=== PATIENT | female | born 1955 | race Caucasian/White ===

== ENCOUNTER 2016-09-18 15:40 | Inpatient (IN) | payer BC ==
[~2016-09-18] VITALS: Ht 157.5 cm; Wt 121.1 kg
[2016-09-18] MEDS ORDERED: MORPHINE SULFATE 4 MG/ML DISP.SYRIN. IV/SQ PRN (16:00)
--- NOTE | 2016-09-18 16:24 | PHYS DOC ---
Adult General Chief Complaint Chief Complaint: MECHANICAL FALL HPI HPI Patient is a 61 year old female who presents with pain after a fall. The patient states she tripped over her carpet just prior to arrival. States she fell to the ground, directly onto her right knee. States her leg was caught underneath her. She also hit her right shoulder against the wall. She denies head trauma or loss of consciousness. States she was unable to bear weight after the injury. Denies any previous shoulder or knee injuries or surgeries. Denies syncope or lightheadedness is contributing factors in her fall. Review of Systems Review of Systems Constitutional: Denies fever or chills Eyes: Denies change in visual acuity HENT: Denies nasal congestion or sore throat Respiratory: Denies cough or shortness of breath Cardiovascular: Denies chest pain or edema GI: Denies abdominal pain, nausea, vomiting, or diarrhea Musculoskeletal: Reports shoulder and knee pain Integument: Denies rash or skin lesions Neurologic: Denies headache, focal weakness or sensory changes Current Medications Current Medications Current Medications Medications (Trade) Dose Ordered Sig/Bisi Start Time Stop Time Status Last Admin Dose Admin Morphine Sulfate 4 mg PRN Q15MIN PRN 09/18/16 16:00 09/19/16 15:59 09/18/16 16:26 4 MG Ondansetron HCl (Zofran) 4 mg 1X ONCE 09/18/16 16:30 09/18/16 16:31 DC 09/18/16 16:26 4 MG Allergies Allergies Allergies Coded Allergies Type Severity Reaction Last Updated Verified Penicillins Allergy Unknown Rash 09/18/16 Yes cefazolin Allergy Unknown Anaphylaxis 09/18/16 Yes Physical Exam Physical Exam Constitutional: Obese, no acute distress, non-toxic appearance. HENT: Normocephalic, atraumatic, bilateral external ears normal, oropharynx moist, nose normal. Eyes: PERRLA, EOMI, conjunctiva normal, no discharge. Neck: supple, no stridor. no c-spine tenderness Cardiovascular: RRR, no murmurs, no edema. Lungs & Thorax: LCTAB, no wheezing, no respiratory distress. Abdomen: soft, nontender, nondistended. Skin: Warm, dry, no erythema, no rash. Back: No spinal tenderness or step offs. Extremities: right shoulder no swelling or deformity, generalized tenderness over joint, unable to demonstrate active ROM in any direction, no elbow or wrist tenderness, radial pulse 2+, axillary nerve sensation intact, radial/ median/ulnar nerve sensory & motor function intact. right knee swelling without obvious deformity, severe diffuse tenderness, unable to demonstrate any active ROM, does not tolerate anterior/posterior drawer or valgus/varus stress but no definite instability identified, no hip or ankle tenderness, dp/pt 2+, sensation intact to foot, able to move ankle & toes. Neurologic: Alert and oriented X 3, normal motor & sensory function, no focal deficits noted. Psychologic: Affect normal, judgement normal, mood normal. Current Patient Data Vital Signs Vital Signs Date Time Temp Pulse Resp B/P (MAP) Pulse Ox O2 Delivery O2 Flow Rate FiO2 09/18/16 16:23 84 20 171/83 (112) 93 Nasal Cannula 2.0 09/18/16 15:40 98.2 98.2 Lab Values Laboratory Tests Test 09/18/16 16:10 White Blood Count 16.2 x10^3/uL (4.0-11.0) H Red Blood Count 5.77 x10^6/uL (3.50-5.40) H Hemoglobin 15.7 g/dL (12.0-15.5) H Hematocrit 48.7 % (36.0-47.0) H Mean Corpuscular Volume 84 fL (79-100) Mean Corpuscular Hemoglobin 27 pg (25-35) Mean Corpuscular Hemoglobin Concent 32 g/dL (31-37) Red Cell Distribution Width 18.5 % (11.5-14.5) H Platelet Count 275 x10^3/uL (140-400) Neutrophils (%) (Auto) 82 % (31-73) H Lymphocytes (%) (Auto) 12 % (24-48) L Monocytes (%) (Auto) 4 % (0-9) Eosinophils (%) (Auto) 2 % (0-3) Basophils (%) (Auto) 0 % (0-3) Neutrophils # (Auto) 13.3 x10^3uL (1.8-7.7) H Lymphocytes # (Auto) 1.9 x10^3/uL (1.0-4.8) Monocytes # (Auto) 0.7 x10^3/uL (0.0-1.1) Eosinophils # (Auto) 0.3 x10^3/uL (0.0-0.7) Basophils # (Auto) 0.1 x10^3/uL (0.0-0.2) Segmented Neutrophils % 71 % (35-66) H Band Neutrophils % 12 % (0-9) H Lymphocytes % 11 % (24-48) L Monocytes % 3 % (0-10) Eosinophils % 3 % (0-5) Toxic Granulation Slight Platelet Estimate Adequate (ADEQUATE) Anisocytosis Slight Sodium Level 142 mmol/L (136-145) Potassium Level 3.6 mmol/L (3.5-5.1) Chloride Level 100 mmol/L (98-107) Carbon Dioxide Level 35 mmol/L (21-32) H Anion Gap 7 (6-14) Blood Urea Nitrogen 10 mg/dL (7-20) Creatinine 0.9 mg/dL (0.6-1.0) Estimated GFR (Cockcroft-Gault) 63.4 BUN/Creatinine Ratio 11 (6-20) Glucose Level 275 mg/dL (70-99) H Calcium Level 8.5 mg/dL (8.5-10.1) Total Bilirubin 0.7 mg/dL (0.2-1.0) Aspartate Amino Transferase (AST) 32 U/L (15-37) Alanine Aminotransferase (ALT) 35 U/L (14-59) Alkaline Phosphatase 84 U/L (46-116) Total Protein 7.1 g/dL (6.4-8.2) Albumin 3.1 g/dL (3.4-5.0) L Albumin/Globulin Ratio 0.8 (1.0-1.7) L Laboratory Tests 09/18/16 16:10 Laboratory Tests 09/18/16 16:10 EKG EKG [] Radiology/Procedures Radiology/Procedures XR R knee, 2 views: interpreted by me: distal femur fracture which is angulated & displaced XR R femur, 2 views: interpreted by me: distal femur fracture, no evidence of proximal fracture XR R shoulder, 2 views: interpreted by me: avulsion fracture of the humeral head, no dislocation. CT R upper extremity pending at time of admission. Course & Med Decision Making Course & Med Decision Making Pertinent Labs and Imaging studies reviewed. (See chart for details) The patient presents with shoulder and knee pain after mechanical fall. Found to have fracture of the humeral head as well as distal femur fracture. Neurovascularly intact. Pain medication administered. Just with Dr. Larsen who recommends CT of right shoulder, keep right lower extremity and extension without application of knee immobilizer. Keep nothing by mouth for surgery in the morning. Discussed results with patient. She agrees with plan for admission and likely operative repair. Discussed with Dr. Thomas who agrees to admit to inpatient status. The patient is being admitted in stable condition. Dragon Disclaimer Dragon Disclaimer This electronic medical record was generated, in whole or in part, using a voice recognition dictation system. Departure Departure Impression: Primary Impression: Closed fracture of right distal femur Additional Impression: Fracture of humeral head, closed Disposition: 09 ADMITTED INPATIENT Admitting Physician: Ray Thomas Condition: STABLE Referrals: EMIGDIO DURBIN (PCP) Problem Qualifiers BRANDI CHAVARRIA MD Sep 18, 2016 16:24
[2016-09-18] MEDS ORDERED: ONDANSETRON PF 4 MG/2 ML VIAL. IV ONE (16:30)
[2016-09-18 17:13] LABS: BASO # 0.1 x10^3/uL (0.0-0.2); BASO % 0 % (0-3); EOS % 2 % (0-3); HEMATOCRIT 48.7 % (36.0-47.0); HEMOGLOBIN 15.7 g/dL (12.0-15.5); LYMPH # 1.9 x10^3/uL (1.0-4.8); LYMPH % 12 % (24-48); MEAN CORPUSCULAR HEMOGLOBIN 27 pg (25-35); MEAN CORPUSCULAR HGB CONC 32 g/dL (31-37); MEAN CORPUSCULAR VOLUME 84 fL (79-100); MONO % 4 % (0-9); NEUT % 82 % (31-73); PLATELET COUNT 275 x10^3/uL (140-400); RED BLOOD COUNT 5.77 x10^6/uL (3.50-5.40); RED CELL DISTRIBUTION WIDTH 18.5 % (11.5-14.5); WHITE BLOOD COUNT 16.2 x10^3/uL (4.0-11.0)
[2016-09-18 17:25] LABS: BILIRUBIN,URINE SMALL (NEG); GLUCOSE,URINE 250 mg/dL (NEG); NITRITE,URINE POSITIVE (NEG); PROTEIN,URINE 30 mg/dL (NEG-TRACE)
[2016-09-18 17:32] LABS: BACTERIA,URINE MODERATE /HPF (0-FEW); RBC,URINE 0 /HPF (0-2)
[2016-09-18 17:33] LABS: SQUAMOUS EPITHELIAL CELL,UR FEW /LPF
[2016-09-18] MEDS ORDERED: LEVO200T PO (17:33)
[2016-09-18] MEDS ORDERED: MONT10TA6 PO (17:33)
[2016-09-18] MEDS ORDERED: GLIM2TAB2 PO (17:33)
[2016-09-18] MEDS ORDERED: FURO-69 PO (17:33)
[2016-09-18] MEDS ORDERED: MELO15TA23 PO (17:33)
[2016-09-18 17:36] LABS: CALCIUM 8.5 mg/dL (8.5-10.1); CREATININE 0.9 mg/dL (0.6-1.0); GFR 63.4; POTASSIUM 3.6 mmol/L (3.5-5.1)
[2016-09-18 17:41] LABS: ALBUMIN 3.1 g/dL (3.4-5.0); ALBUMIN/GLOBULIN RATIO 0.8 (1.0-1.7); TOTAL BILIRUBIN 0.7 mg/dL (0.2-1.0); TOTAL PROTEIN 7.1 g/dL (6.4-8.2)
[2016-09-18 17:48] LABS: % EOS 3 % (0-5)
[2016-09-18] MEDS: IV NORMAL SALINE 1000ML BAG 1,000 ML IV SCH (17:49)
[2016-09-18 17:50] LABS: ANISOCYTOSIS SLIGHT; PLT ESTIMATE ADEQUATE (ADEQUATE); TOXIC GRANULATION SLIGHT
[2016-09-18] MEDS ORDERED: ONDANSETRON PF 4 MG/2 ML VIAL. IV PRN (18:00)
[2016-09-18 18:20] VITALS: BP 160/78
--- NOTE | 2016-09-18 18:47 | RAD ---
EXAM: Right shoulder CT without contrast. HISTORY: Fracture. TECHNIQUE: Computed tomographic images of the right shoulder obtained without contrast. 3-dimensional images were obtained. *One or more of the following individualized dose reduction techniques were utilized for this examination: 1. Automated exposure control. 2. Adjustment of the mA and/or kV according to patient size. 3. Use of iterative reconstruction technique. COMPARISON: Radiographs obtained on the same date. FINDINGS: There is a comminuted mildly displaced fracture of the humeral head and neck. The fracture involves the greater tuberosity. No glenohumeral dislocation or glenoid fracture is seen. There is minimal spurring involving the acromioclavicular joint. There is a glenohumeral joint effusion, likely a lipohemarthrosis. No additional fracture is seen. There are prominent axillary and subpectoral lymph nodes. The visualized portions of the right long demonstrate a 3 mm nodular opacity within the right middle lobe along the pleural fissure, possibly a fissural lymph node. No rib fracture is seen. IMPRESSION: 1. Comminuted mildly displaced right humeral head and neck fracture with involvement of the greater tuberosity. 2. Right glenohumeral joint effusion. 3. Mild right acromioclavicular osteoarthritis. 4. Prominent axillary and subpectoral lymph nodes. 5. 3 mm nodular opacity within the right mid lung along the pleural fissure, possibly a fissural lymph node. Follow-up can be performed according to Fleischner Society criteria if clinically indicated. Fleischner Society recommendations (Radiology 2005; 237; 395-400): In a low risk patient: <4mm - No follow up required. >4-6mm- 12 month follow up, if unchanged, no further follow up. >6-8mm- 6-12 month follow up, then at 18-24 months if no change. >8mm- 3, 9, 24 month follow up or consideration of PET/CT. In a high risk patient: <4mm - 12 month follow up, if unchanged then no further follow up. >4-6mm- 6-12 month follow up, then at 18-24 months if no change. >6-8mm- 3-6 month follow up, then at 9-12 months and 24 months if no change >8mm- Same as for low risk patient. Electronically signed by: Coleen Ng MD (09/18/2016 6:43 PM) [id number]
[2016-09-18 19:00] VITALS: BP 161/88
[2016-09-18] MEDS: MORPHINE SULFATE 4 MG/ML DISP.SYRIN. IV PRN ×2 (19:13→22:22)
--- NOTE | 2016-09-18 20:17 | HP ---
ADMIT DATE: 09/18/2016 CHIEF COMPLAINT: Fall. HISTORY OF PRESENT ILLNESS: The patient is a pleasant 61-year-old female who fell. She complains of leg pain and right shoulder pain. We did imaging. She has got a distal femur fracture. She also has a humerous avulsion fracture. I have discussed the case with the ER physician. We are going to admit the patient and consult Orthopedics. PAST MEDICAL HISTORY: Hypertension, diabetes, hypothyroidism, muscle spasms, insomnia, allergic rhinitis and asthma. ALLERGIES: PENICILLIN AND CEFAZOLIN. FAMILY HISTORY: Hypertension. SOCIAL HISTORY: She is retired. She does not drink, smoke or take drugs. MEDICATIONS: Reviewed, please see the MRAD. REVIEW OF SYSTEMS: GENERAL: No history of weight change, weakness or fevers. SKIN: No bruising, hair changes or rashes. EYES: No blurred, double or loss of vision. NOSE AND THROAT: No history of nosebleeds, hoarseness or sore throat. HEART: No history of palpitations, chest pain or shortness of breath on exertion. LUNGS: Denies cough, hemoptysis, wheezing or shortness of breath. GASTROINTESTINAL: Denies changes in appetite, nausea, vomiting, diarrhea or constipation. GENITOURINARY: No history of frequency, urgency, hesitancy or nocturia. NEUROLOGIC: Denies history of numbness, tingling, tremor or weakness. PSYCHIATRIC: No history of panic, anxiety or depression. ENDOCRINE: No history of heat or cold intolerance, polyuria or polydipsia. EXTREMITIES: She complains of right leg pain and right shoulder pain. PHYSICAL EXAMINATION: VITAL SIGNS: Temperature afebrile, pulse 67, respirations 18, blood pressure 160/78, O2 sat 88% on 2 liters. GENERAL: She is alert, cooperative, just arrived into the CAT scan area. HEART: Normal S1, S2. LUNGS: Clear. ABDOMEN: Soft, positive bowel sounds. EXTREMITIES: The right lower extremity is externally rotated and somewhat contracted. The right shoulder is also in a brace. ENDOCRINE: No thyromegaly. LYMPHATICS: No cervical nodes. HEMATOPOIETIC: No bruising. LABORATORY DATA: White count 16, hemoglobin 16, platelets 275. Electrolytes normal other than glucose of 275. Albumin is a little low at 3.1. Urinalysis shows trace leukocyte esterase, 1-4 white cells, positive nitrites. ASSESSMENT AND PLAN: Fall with femur fracture and humerus fracture in an elderly female who has an incidental finding of leukocytosis with urinary tract infection. The patient is being admitted. We will consult Orthopedics. I am going to start IV Levaquin 500 every day, p.r.n. narcotics. Await surgery, probably tomorrow. Post-surgery, she is aggressive physical therapy, wound care and snf evaluation. I am going to resume her home meds. SOUMYA ESCOBAR DO DR: JODEE/richie JOB#: [id number] / [id number]
[2016-09-18] MEDS ORDERED: BREO ELLIPTA 11 EACH IH (21:53)
[2016-09-18] MEDS ORDERED: PROAIR HFA8.5 GM INH (21:53)
[2016-09-18 23:00] VITALS: BP 130/57
[2016-09-19] VITALS (10 sets, daily range): BP systolic 118–154; BP diastolic 57–114
[2016-09-19] MEDS: IV NORMAL SALINE 1000ML BAG 1,000 ML IV SCH ×2 (02:04→11:34)
--- NOTE | 2016-09-19 04:43 | ACF ---
Admission Forms Criteria MUSCULOSKELETAL DISEASE GRG Clinical Indications for Admission to Inpatient Care (Place 'X' for any and all applicable criteria): Hospital admission is needed for appropriate care of the patient because of 1 or more of the following: [ X]I. Fracture, dislocation, or other musculoskeletal injury requiring inpatient care(medical) as indicated by 1 or more of the following(4)(5)(6)(7) [ ]a) Vertebral fracture requiring observation for instability or neurologic compromise (8) [ ]b) Compartment syndrome (proven or cannot be ruled out during observation level of care) (9) [ ]c) Limb-threatening injury [ ]d) Major injury requiring inpatient stabilization such as traction initiation or external fixation before internal fixation or closure of complex or open fracture [ X]e) Major injury requiring inpatient treatment after emergency or observation level care (as appropriate) [ ]f) Severe pain requiring acute inpatient management [ ]g) Injury with suspicion of abuse or neglect (eg., child, dependent elderly) [ ]II. Newly diagnosed or suspected bone, joint, or orthopedic device infection (e.g., osteomyelitis, septic arthritis) needing 1 or more of the following(1)(2)(3) [ ]a) IV antibiotics that cannot be initiated in other than inpatient setting (e.g., patient too unstable or home infusion not available) [ ]b) Device removal or replacement [ ]c) Bone or soft tissue debridement [ ]d) Joint drainage (drain placement or repetitive aspirations) [ ]III. Severe rheumatologic disease (e.g., systemic lupus erythematosus, rheumatoid arthritis) with complications or comorbidities (Also use Optimal Recovery Care Criteria or General Recovery Criteria as appropriate on the basis of predominant condition), including 1 or more of the following( 10)(11)(12)(13) [ ]a) Severe infection (e.g., DOUBLE NEEDLE OPERATOR LOCKSTITCH infection, sepsis) (14) [ ]b) Respiratory complications, including 1 or more of the following : [ ]i) Pleural effusion with respiratory compromise [ ]ii) Pulmonary hypertension with congestive failure [ ]iii) Respiratory failure [ ]iv) Pulmonary hemorrhage (15) [ ]c) Hematologic disease, including 1 or more of the following: [ ]i) Coagulopathy with bleeding [ ]ii) Thrombosis with hypercoagulable state [ ]iii) Thrombotic thrombocytopenic purpura [ ]d) Cerebritis with seizures, psychosis, or other severe abnormalities [ ]e) Vertebral destruction with monitoring needed for cervical myelopathy& possible respiratory compromise [ ]f) Exacerbation that requires inpatient treatment (e.g., intravenous immunosuppression) (16) [ ]g) Acute renal failure [ ]h) Cerebritis with seizures, psychosis, Altered mental status, or other neurologic abnormalities [ ]i) Pericardial effusion with tamponade [ ]j) Vertebral destruction, with monitoring needed for cervical myelopathy and possible respiratory compromise [ ]IV. Severe vasculitis with complications or comorbidities (Also use Optimal Recovery Care Criteria General Recovery Criteria as appropriate on the basis of predominant condition), including 1 or more of the following(11)(12)(17)(18)(19)(20) [ ]a) Exacerbation that requires inpatient treatment (e.g., intravenous immunosuppression) (19)(21) [ ]b) Pulmonary hemorrhage (15) [ ]c) DOUBLE NEEDLE OPERATOR LOCKSTITCH vasculitis with seizures, psychosis, Altered mental status that is severe or persistent, or other severe abnormalities (22) [ ]d) Cerebral infarction [ ]e) Gastrointestinal ischemia [ ]f) Gangrene or threatened amputation [ ]g) Renal failure (16) [ ]h) Other significant complications of vasculitis ( eg., tissue or organ ischemia, organ dysfunction ) [ ]V. Severe myopathy as indicated by 1 or more of the following (28)(29) [ ]a) New onset of airway compromise or inability to swallow [ ]b) Respiratory deterioration with observation needed for impending respiratory failure [ ]c) Exacerbation that requires inpatient treatment (e.g., intravenous immunosuppression) [ ]. Severe crystal gout (arthropathy) indicated by 1 or more of the following (23)(24) [ ]a) Severe pain requiring acute inpatient management [ ]b) Exacerbation that requires inpatient treatment (e.g., intravenous treatment) [ ]VII.Rhabdomyolysis and 1 or more of the following (25)(26)(27) [ ]a) Acute renal failure [ ]b) Need for intravenous hydration after emergency or observation level care (as appropriate) [ ]c) Inability to maintain oral hydration [ ]d) Change in mental status [ ]e) Electrolyte abnormality that remains after emergency or observation level care (as appropriate) [ ]VIII Post amputation complication, as indicated by ANY ONE of the following [ ]a) Infection [ ]b) Dehiscence [ ]c) Myodesis failure [ ]IX. Severe pain requiring acute inpatient management due to musculoskeletal condition [ ]X. Musculoskeletal Disease and ALL of the following: [ ]a) Symptom or finding for which emergency and observation care have failed or are not considered appropriate (Use General Criteria: Observation Care as appropriate) [ ]b) Presence of ANY ONE of the following [ ]i) A General Admission Criteria [ ]ii) A Pediatric General Admission Criteria The original [facility] content created by [facility] [employer] has been revised. The portions of the content which have been revised are identified through the use of italic text or in bold, and [facility] has neither reviewed nor approved the modified material. All other unmodified content is copyright [facility]. Please see references footnoted in the original [facility] edition 2016 Admission Criteria Met?: Yes BHAVANA VAZQUEZ Sep 19, 2016 04:43
[2016-09-19] MEDS ORDERED: IV RINGERS,LACTATED 1000ML 1,000 ML IV SCH (08:01)
[2016-09-19] MEDS ORDERED: MORPHINE SULFATE 2 MG/ML DISP.SYRIN. IV PRN (08:15)
[2016-09-19] MEDS ORDERED: fentaNYL PF VIAL 100 MCG/2 ML VIAL IV PRN ×2 (08:15)
[2016-09-19] MEDS ORDERED: HYDROmorphone 2 MG/ML VIAL IV PRN (08:15)
[2016-09-19] MEDS ORDERED: PROCHLORPERAZINE 10 MG/2 ML VIAL. IV PRN (08:15)
[2016-09-19] MEDS ORDERED: LIDOCAINE 1% 1 ML SYRINGE. ID PRN (08:15)
[2016-09-19] MEDS: MORPHINE SULFATE 4 MG/ML DISP.SYRIN. IV PRN (08:44)
--- NOTE | 2016-09-19 09:35 | RAD ---
Two-view right shoulder radiographs 09/18/2016 Clinical history: Fall with injury to the right shoulder. AP internal and external rotation digital radiographs of the right shoulder were obtained. There is diffuse osteopenia of the visualized bony structures. An acute slightly comminuted fracture of the greater tuberosity of the right humerus is noted. The fracture extends to involve the lateral aspect of the right humeral head. The major fracture fragment is mildly displaced laterally and slightly superiorly. No dislocation is seen. No additional fracture is noted. Mild degenerative changes are seen involving the right AC joint and right glenohumeral joint. Impression: Acute fracture of the proximal right humerus as outlined above.
--- NOTE | 2016-09-19 09:38 | RAD ---
AP and lateral right knee radiographs 09/18/2016 Clinical history: Fall with injury to the right knee. AP and lateral digital radiographs of the right knee were obtained. There is diffuse osteopenia of the visualized bony structures. Am acute comminuted fracture of the distal right femoral diaphysis which extends to involve the distal metaphysis of the right femur is seen. The major distal fracture fragment is mildly displaced medially. The fracture line does not extend to the medial or lateral compartment of the right knee joint. No dislocation is seen. Moderate to severe degenerative changes are seen involving the right knee, particularly the lateral compartment. Impression: Acute comminuted fracture of the distal right femur as outlined above.
--- NOTE | 2016-09-19 09:50 | RAD ---
AP right femur radiographs May 27, 2016 Clinical history: Fall with injury to the right femur. Two AP digital radiographs of the right femur were obtained. An acute comminuted fracture of the distal diaphysis of the right femur which extends to the distal right femoral metaphysis is seen. No definite extension to involve the medial or lateral compartment of the right knee is noted. The major distal fracture fragment is mildly displaced medially. Impression: Acute comminuted fracture of the distal right femur.
--- NOTE | 2016-09-19 11:18 | PDOC2 ---
CONSULT Date of Consult Date of Consult DATE: 09/19/16 TIME: 11:02 Reason for Consult Reason for Consult: Right femur fracture and right humerus fracture Identification/Chief Complaint Chief Complaint Right leg pain, right shoulder pain Problems: Source Source: Patient History of Present Illness Reason for Visit: 61 year old female who was at home yesterday and tripped on her carpet in the home and fell down landing on her right side breaking her right femur and right proximal humerus. She states that she got morphine about an hour ago and her pain is fairly well controlled right now. She normally takes care of herself just fine and gets around on her own just fine. Past Medical History Past Medical History She has a history of COPD which she is not on O2 for Borderline diabetes which she takes oral medication for, states A1C is around 7 Rheumatoid Arthritis which she only takes meloxicam for as she does not like the biologics Intermittent history of low vitamin D Skin cancer which was not melanoma Fibromyalgia Likely sleep apnea which she has a scheduled sleep study for. Past Surgical History Past Surgical History Thyroidectomy Cholecystecomy Appendectomy Social History No ALCOHOL: none Drugs: None Current Problem List Problem List Problems Medical Problems: (1) Closed fracture of right distal femur Status: Acute (2) Fracture of humeral head, closed Status: Acute Current Medications Current Medications Current Medications Morphine Sulfate 4 mg PRN Q15MIN PRN IV/SQ PAIN GREATER THAN 3/10 Last administered on 09/18/16 16:26; Start 09/18/16 at 16:00; Stop 09/19/16 at 15:59 Ondansetron HCl (Zofran) 4 mg 1X ONCE IV Last administered on 09/18/16 16:26 ; Start 09/18/16 at 16:30; Stop 09/18/16 at 16:31; Status DC Ondansetron HCl (Zofran) 4 mg PRN Q8HRS PRN IV NAUSEA/VOMITING; Start 09/18/16 at 18:00; Stop 09/19/16 at 17:59 Morphine Sulfate 4 mg PRN Q2HR PRN IV PAIN Last administered on 09/19/16 08:44 ; Start 09/18/16 at 18:00; Stop 09/19/16 at 17:59 Sodium Chloride 1,000 ml @ 125 mls/hr Q8H IV Last administered on 09/19/16 02 :04; Start 09/18/16 at 17:49; Stop 09/19/16 at 17:48 Levofloxacin/ Dextrose 100 ml @ 100 mls/hr Q24H IV Last administered on t 19:13; Start 09/18/16 at 20:00 Fentanyl Citrate (Fentanyl 2ml Vial) 25 mcg PRN Q5MIN PRN IV MILD PAIN; Start 09/19/16 at 08:15; Stop 09/20/16 at 08:14 Fentanyl Citrate (Fentanyl 2ml Vial) 50 mcg PRN Q5MIN PRN IV MODERATE PAIN; Start 09/19/16 at 08:15; Stop 09/20/16 at 08:14 Morphine Sulfate 1 mg PRN Q10MIN PRN IV SEVERE PAIN; Start 09/19/16 at 08:15; Stop 09/20/16 at 08:14 Ringer's Solution 1,000 ml @ 30 mls/hr Q24H IV ; Start 09/19/16 at 08:01; Stop 09/19/16 at 20:00 Lidocaine HCl 2 ml PRN 1X PRN ID PRIOR TO IV START; Start 09/19/16 at 08:15; Stop 09/20/16 at 08:14 Hydromorphone HCl (Dilaudid) 0.5 mg PRN Q10MIN PRN IV SEV PAIN, Second choice; Start 09/19/16 at 08:15; Stop 09/20/16 at 08:14 Prochlorperazine Edisylate (Compazine) 5 mg PACU PRN PRN IV NAUSEA, MRX1; Start 09/19/16 at 08:15; Stop 09/20/16 at 08:14 Active Scripts Active Reported Proair Hfa Inhaler (Albuterol Sulfate) 8.5 Gm Hfa.aer.ad 1 Puff INH PRN Q6HRS PRN Breo Ellipta 100-25 Mcg Inh (Fluticasone/Vilanterol) 1 Each Aer.pow.ba 1 Puff IH DAILY Glimepiride 2 Mg Tablet 2 Mg PO DAILY Singulair Tablet (Montelukast Sodium) 10 Mg Tablet 10 Mg PO HS Lasix (Furosemide) 20 Mg Tablet 20 Mg PO DAILY Meloxicam 15 Mg Tablet 15 Mg PO DAILY Synthroid (Levothyroxine Sodium) 200 Mcg Tablet 200 Mcg PO DAILYAC Allergies Allergies: Coded Allergies: Penicillins (Verified Allergy, Unknown, Rash, 09/18/16) cefazolin (Verified Allergy, Unknown, Anaphylaxis, 09/18/16) ROS General: No: Chills, Night Sweats Musculoskeletal: Yes Joint Pain, Yes Joint Swelling, Yes Pain In: (right shoulder, right leg) Physical Exam Physical Exam RLE externally rotated and slightly shortened over femur, swelling over right thigh. DP not palpable due to swelling but strong PT. DNVI. RUE in sling. Patient able to move hand wrist and elbow. Radial pulse 2+. DNVI. General: Alert, Oriented X3, Cooperative, No acute distress HEENT: Atraumatic Extremities: No clubbing, No cyanosis Skin: No breakdown, No significant lesion Neuro: Normal speech, Normal tone, Sensation intact Psych/Mental Status: Mental status NL, Mood NL Vitals VITALS Vital Signs Date Time Temp Pulse Resp B/P (MAP) Pulse Ox O2 Delivery O2 Flow Rate FiO2 09/19/16 08:44 18 89 Nasal Cannula 2.0 09/19/16 07:00 98.5 94 154/82 (106) 98.5 Labs Labs Laboratory Tests Test 09/18/16 16:10 09/18/16 17:15 09/18/16 19:06 09/19/16 07:49 White Blood Count 16.2 x10^3/uL (4.0-11.0) Red Blood Count 5.77 x10^6/uL (3.50-5.40) Hemoglobin 15.7 g/dL (12.0-15.5) Hematocrit 48.7 % (36.0-47.0) Mean Corpuscular Volume 84 fL (79-100) Mean Corpuscular Hemoglobin 27 pg (25-35) Mean Corpuscular Hemoglobin Concent 32 g/dL (31-37) Red Cell Distribution Width 18.5 % (11.5-14.5) Platelet Count 275 x10^3/uL (140-400) Neutrophils (%) (Auto) 82 % (31-73) Lymphocytes (%) (Auto) 12 % (24-48) Monocytes (%) (Auto) 4 % (0-9) Eosinophils (%) (Auto) 2 % (0-3) Basophils (%) (Auto) 0 % (0-3) Neutrophils # (Auto) 13.3 x10^3uL (1.8-7.7) Lymphocytes # (Auto) 1.9 x10^3/uL (1.0-4.8) Monocytes # (Auto) 0.7 x10^3/uL (0.0-1.1) Eosinophils # (Auto) 0.3 x10^3/uL (0.0-0.7) Basophils # (Auto) 0.1 x10^3/uL (0.0-0.2) Segmented Neutrophils % 71 % (35-66) Band Neutrophils % 12 % (0-9) Lymphocytes % 11 % (24-48) Monocytes % 3 % (0-10) Eosinophils % 3 % (0-5) Toxic Granulation Slight Platelet Estimate Adequate (ADEQUATE) Anisocytosis Slight Sodium Level 142 mmol/L (136-145) Potassium Level 3.6 mmol/L (3.5-5.1) Chloride Level 100 mmol/L (98-107) Carbon Dioxide Level 35 mmol/L (21-32) Anion Gap 7 (6-14) Blood Urea Nitrogen 10 mg/dL (7-20) Creatinine 0.9 mg/dL (0.6-1.0) Estimated GFR (Cockcroft-Gault) 63.4 BUN/Creatinine Ratio 11 (6-20) Glucose Level 275 mg/dL (70-99) Calcium Level 8.5 mg/dL (8.5-10.1) Total Bilirubin 0.7 mg/dL (0.2-1.0) Aspartate Amino Transf (AST/SGOT) 32 U/L (15-37) Alanine Aminotransferase (ALT/SGPT) 35 U/L (14-59) Alkaline Phosphatase 84 U/L (46-116) Total Protein 7.1 g/dL (6.4-8.2) Albumin 3.1 g/dL (3.4-5.0) Albumin/Globulin Ratio 0.8 (1.0-1.7) Urine Collection Type U cath Urine Color Dk yellow Urine Clarity Cloudy Urine pH 7.0 Urine Specific Sunflower 1.025 Urine Protein 30 mg/dL (NEG-TRACE) Urine Glucose (UA) 250 mg/dL (NEG) Urine Ketones (Stick) Negative mg/dL (NEG) Urine Blood Negative (NEG) Urine Nitrite Positive (NEG) Urine Bilirubin Small (NEG) Urine Urobilinogen Dipstick 1.0 mg/dL (0.2 mg/dL) Urine Leukocyte Esterase Trace (NEG) Urine RBC 0 /HPF (0-2) Urine WBC 1-4 /HPF (0-4) Urine Squamous Epithelial Cells Few /LPF Urine Transitional Epithelial Cells Occ /LPF Urine Bacteria Moderate /HPF (0-FEW) Urine Mucus Marked /LPF Glucose (Fingerstick) 155 mg/dL (70-99) 100 mg/dL (70-99) Laboratory Tests Test 09/18/16 16:10 09/18/16 17:15 09/18/16 19:06 09/19/16 07:49 White Blood Count 16.2 x10^3/uL (4.0-11.0) Red Blood Count 5.77 x10^6/uL (3.50-5.40) Hemoglobin 15.7 g/dL (12.0-15.5) Hematocrit 48.7 % (36.0-47.0) Mean Corpuscular Volume 84 fL (79-100) Mean Corpuscular Hemoglobin 27 pg (25-35) Mean Corpuscular Hemoglobin Concent 32 g/dL (31-37) Red Cell Distribution Width 18.5 % (11.5-14.5) Platelet Count 275 x10^3/uL (140-400) Neutrophils (%) (Auto) 82 % (31-73) Lymphocytes (%) (Auto) 12 % (24-48) Monocytes (%) (Auto) 4 % (0-9) Eosinophils (%) (Auto) 2 % (0-3) Basophils (%) (Auto) 0 % (0-3) Neutrophils # (Auto) 13.3 x10^3uL (1.8-7.7) Lymphocytes # (Auto) 1.9 x10^3/uL (1.0-4.8) Monocytes # (Auto) 0.7 x10^3/uL (0.0-1.1) Eosinophils # (Auto) 0.3 x10^3/uL (0.0-0.7) Basophils # (Auto) 0.1 x10^3/uL (0.0-0.2) Segmented Neutrophils % 71 % (35-66) Band Neutrophils % 12 % (0-9) Lymphocytes % 11 % (24-48) Monocytes % 3 % (0-10) Eosinophils % 3 % (0-5) Toxic Granulation Slight Platelet Estimate Adequate (ADEQUATE) Anisocytosis Slight Sodium Level 142 mmol/L (136-145) Potassium Level 3.6 mmol/L (3.5-5.1) Chloride Level 100 mmol/L (98-107) Carbon Dioxide Level 35 mmol/L (21-32) Anion Gap 7 (6-14) Blood Urea Nitrogen 10 mg/dL (7-20) Creatinine 0.9 mg/dL (0.6-1.0) Estimated GFR (Cockcroft-Gault) 63.4 BUN/Creatinine Ratio 11 (6-20) Glucose Level 275 mg/dL (70-99) Calcium Level 8.5 mg/dL (8.5-10.1) Total Bilirubin 0.7 mg/dL (0.2-1.0) Aspartate Amino Transf (AST/SGOT) 32 U/L (15-37) Alanine Aminotransferase (ALT/SGPT) 35 U/L (14-59) Alkaline Phosphatase 84 U/L (46-116) Total Protein 7.1 g/dL (6.4-8.2) Albumin 3.1 g/dL (3.4-5.0) Albumin/Globulin Ratio 0.8 (1.0-1.7) Urine Collection Type U cath Urine Color Dk yellow Urine Clarity Cloudy Urine pH 7.0 Urine Specific Sunflower 1.025 Urine Protein 30 mg/dL (NEG-TRACE) Urine Glucose (UA) 250 mg/dL (NEG) Urine Ketones (Stick) Negative mg/dL (NEG) Urine Blood Negative (NEG) Urine Nitrite Positive (NEG) Urine Bilirubin Small (NEG) Urine Urobilinogen Dipstick 1.0 mg/dL (0.2 mg/dL) Urine Leukocyte Esterase Trace (NEG) Urine RBC 0 /HPF (0-2) Urine WBC 1-4 /HPF (0-4) Urine Squamous Epithelial Cells Few /LPF Urine Transitional Epithelial Cells Occ /LPF Urine Bacteria Moderate /HPF (0-FEW) Urine Mucus Marked /LPF Glucose (Fingerstick) 155 mg/dL (70-99) 100 mg/dL (70-99) Images Images Plain films of right femur and knee reveal a right comminuted fracture of the distal femur Plain films and CT of the right shoulder reveal a right humeral head and neck fracture Please see chart for radiologist read and images Assessment/Plan Assessment/Plan 61 year old female with right shoulder and right femur fracture sustained after a fall at home yesterday. Plan for operating room today for a right retrograde intramedullary nailing of the right femur. Will treat right shoulder in sling. SCOTTIE BEAR PAC Sep 19, 2016 11:18
[2016-09-19] MEDS ORDERED: BUPIVAC MPF-EPI 0.5%-1:200000 30 ML VIAL. ONE (13:19)
[2016-09-19] MEDS ORDERED: DESFLURANE 61 TO 120 MINUTES IH ONE (13:28)
[2016-09-19] MEDS ORDERED: fentaNYL PF VIAL 100 MCG/2 ML VIAL ONE ×2 (13:29→14:22)
[2016-09-19] MEDS ORDERED: PROPOFOL 20 ML IV ONE (13:29)
[2016-09-19] MEDS ORDERED: DEXAMETHASONE SOD PHOS 20 MG/5 ML VIAL. ONE (13:29)
[2016-09-19] MEDS ORDERED: LIDOCAINE 2% PF Vial for OR 5 ML VIAL. ONE (13:29)
[2016-09-19] MEDS ORDERED: ONDANSETRON PF 4 MG/2 ML VIAL. ONE (13:29)
[2016-09-19] MEDS ORDERED: ALBUTEROL SULFATE 2.5 MG/3 ML NEBU. NEB ONE ×2 (13:30→17:45)
[2016-09-19] MEDS ORDERED: SUCCINYLCHOLINE 200 MG/10 ML VIAL. ONE (13:31)
--- NOTE | 2016-09-19 13:51 | PDOC ---
PROGRESS NOTES Chief Complaint Chief Complaint Distal femur fx Humerus avulsion fx Hypertension Diabetes Hypothyroidism Muscle spasms Insomnia Allergic rhinitis Asthma History of Present Illness History of Present Illness Patient was resting in bed. Daughter was present. Patient stated her arm was caught on a fence. Discussed case with daughter. Went over labs and imaging with daughter. Awaiting surgery. WBC elevated at 16.2. Vitals Vitals Vital Signs Date Time Temp Pulse Resp B/P (MAP) Pulse Ox O2 Delivery O2 Flow Rate FiO2 09/19/16 11:00 99.2 94 18 133/114 (120) 88 Nasal Cannula 2.0 99.2 Physical Exam General: Alert, Oriented X3, Cooperative, No acute distress Heart: Regular rate, No murmurs Lungs: Clear, Other (no r/r/w) Abdomen: Normal bowel sounds, No tenderness Extremities: No clubbing, No edema Skin: No rashes, No significant lesion Labs LABS Laboratory Tests Test 09/18/16 16:10 09/18/16 17:15 09/18/16 19:06 09/19/16 07:49 White Blood Count 16.2 x10^3/uL (4.0-11.0) Red Blood Count 5.77 x10^6/uL (3.50-5.40) Hemoglobin 15.7 g/dL (12.0-15.5) Hematocrit 48.7 % (36.0-47.0) Mean Corpuscular Volume 84 fL (79-100) Mean Corpuscular Hemoglobin 27 pg (25-35) Mean Corpuscular Hemoglobin Concent 32 g/dL (31-37) Red Cell Distribution Width 18.5 % (11.5-14.5) Platelet Count 275 x10^3/uL (140-400) Neutrophils (%) (Auto) 82 % (31-73) Lymphocytes (%) (Auto) 12 % (24-48) Monocytes (%) (Auto) 4 % (0-9) Eosinophils (%) (Auto) 2 % (0-3) Basophils (%) (Auto) 0 % (0-3) Neutrophils # (Auto) 13.3 x10^3uL (1.8-7.7) Lymphocytes # (Auto) 1.9 x10^3/uL (1.0-4.8) Monocytes # (Auto) 0.7 x10^3/uL (0.0-1.1) Eosinophils # (Auto) 0.3 x10^3/uL (0.0-0.7) Basophils # (Auto) 0.1 x10^3/uL (0.0-0.2) Segmented Neutrophils % 71 % (35-66) Band Neutrophils % 12 % (0-9) Lymphocytes % 11 % (24-48) Monocytes % 3 % (0-10) Eosinophils % 3 % (0-5) Toxic Granulation Slight Platelet Estimate Adequate (ADEQUATE) Anisocytosis Slight Sodium Level 142 mmol/L (136-145) Potassium Level 3.6 mmol/L (3.5-5.1) Chloride Level 100 mmol/L (98-107) Carbon Dioxide Level 35 mmol/L (21-32) Anion Gap 7 (6-14) Blood Urea Nitrogen 10 mg/dL (7-20) Creatinine 0.9 mg/dL (0.6-1.0) Estimated GFR (Cockcroft-Gault) 63.4 BUN/Creatinine Ratio 11 (6-20) Glucose Level 275 mg/dL (70-99) Calcium Level 8.5 mg/dL (8.5-10.1) Total Bilirubin 0.7 mg/dL (0.2-1.0) Aspartate Amino Transf (AST/SGOT) 32 U/L (15-37) Alanine Aminotransferase (ALT/SGPT) 35 U/L (14-59) Alkaline Phosphatase 84 U/L (46-116) Total Protein 7.1 g/dL (6.4-8.2) Albumin 3.1 g/dL (3.4-5.0) Albumin/Globulin Ratio 0.8 (1.0-1.7) Urine Collection Type U cath Urine Color Dk yellow Urine Clarity Cloudy Urine pH 7.0 Urine Specific [place]ero 1.025 Urine Protein 30 mg/dL (NEG-TRACE) Urine Glucose (UA) 250 mg/dL (NEG) Urine Ketones (Stick) Negative mg/dL (NEG) Urine Blood Negative (NEG) Urine Nitrite Positive (NEG) Urine Bilirubin Small (NEG) Urine Urobilinogen Dipstick 1.0 mg/dL (0.2 mg/dL) Urine Leukocyte Esterase Trace (NEG) Urine RBC 0 /HPF (0-2) Urine WBC 1-4 /HPF (0-4) Urine Squamous Epithelial Cells Few /LPF Urine Transitional Epithelial Cells Occ /LPF Urine Bacteria Moderate /HPF (0-FEW) Urine Mucus Marked /LPF Glucose (Fingerstick) 155 mg/dL (70-99) 100 mg/dL (70-99) Test 09/19/16 11:33 Glucose (Fingerstick) 99 mg/dL (70-99) Review of Systems Review of Systems Patient complains of arm pain. Patient complains of weakness. Assessment and Plan Assessmemt and Plan Problems Medical Problems: (1) Closed fracture of right distal femur Status: Acute (2) Fracture of humeral head, closed Status: Acute Assessment: Distal femur fx Humerus avulsion fx Hypertension Diabetes Hypothyroidism Muscle spasms Insomnia Allergic rhinitis Asthma Plan: 1. Await surgical correction 2. Recheck labs 3. Continue pain medication 4. Possible rehab center, post-op 5. Will need aggressive PT/OT, post-op 6. Wound care, post-op 7. Home medications Problems: Comment Review of Relevant I have reviewed the following items vic (where applicable) has been applied. Labs Laboratory Tests Test 09/18/16 16:10 09/18/16 17:15 09/18/16 19:06 09/19/16 07:49 White Blood Count 16.2 x10^3/uL (4.0-11.0) Red Blood Count 5.77 x10^6/uL (3.50-5.40) Hemoglobin 15.7 g/dL (12.0-15.5) Hematocrit 48.7 % (36.0-47.0) Mean Corpuscular Volume 84 fL (79-100) Mean Corpuscular Hemoglobin 27 pg (25-35) Mean Corpuscular Hemoglobin Concent 32 g/dL (31-37) Red Cell Distribution Width 18.5 % (11.5-14.5) Platelet Count 275 x10^3/uL (140-400) Neutrophils (%) (Auto) 82 % (31-73) Lymphocytes (%) (Auto) 12 % (24-48) Monocytes (%) (Auto) 4 % (0-9) Eosinophils (%) (Auto) 2 % (0-3) Basophils (%) (Auto) 0 % (0-3) Neutrophils # (Auto) 13.3 x10^3uL (1.8-7.7) Lymphocytes # (Auto) 1.9 x10^3/uL (1.0-4.8) Monocytes # (Auto) 0.7 x10^3/uL (0.0-1.1) Eosinophils # (Auto) 0.3 x10^3/uL (0.0-0.7) Basophils # (Auto) 0.1 x10^3/uL (0.0-0.2) Segmented Neutrophils % 71 % (35-66) Band Neutrophils % 12 % (0-9) Lymphocytes % 11 % (24-48) Monocytes % 3 % (0-10) Eosinophils % 3 % (0-5) Toxic Granulation Slight Platelet Estimate Adequate (ADEQUATE) Anisocytosis Slight Sodium Level 142 mmol/L (136-145) Potassium Level 3.6 mmol/L (3.5-5.1) Chloride Level 100 mmol/L (98-107) Carbon Dioxide Level 35 mmol/L (21-32) Anion Gap 7 (6-14) Blood Urea Nitrogen 10 mg/dL (7-20) Creatinine 0.9 mg/dL (0.6-1.0) Estimated GFR (Cockcroft-Gault) 63.4 BUN/Creatinine Ratio 11 (6-20) Glucose Level 275 mg/dL (70-99) Calcium Level 8.5 mg/dL (8.5-10.1) Total Bilirubin 0.7 mg/dL (0.2-1.0) Aspartate Amino Transf (AST/SGOT) 32 U/L (15-37) Alanine Aminotransferase (ALT/SGPT) 35 U/L (14-59) Alkaline Phosphatase 84 U/L (46-116) Total Protein 7.1 g/dL (6.4-8.2) Albumin 3.1 g/dL (3.4-5.0) Albumin/Globulin Ratio 0.8 (1.0-1.7) Urine Collection Type U cath Urine Color Dk yellow Urine Clarity Cloudy Urine pH 7.0 Urine Specific [place] 1.025 Urine Protein 30 mg/dL (NEG-TRACE) Urine Glucose (UA) 250 mg/dL (NEG) Urine Ketones (Stick) Negative mg/dL (NEG) Urine Blood Negative (NEG) Urine Nitrite Positive (NEG) Urine Bilirubin Small (NEG) Urine Urobilinogen Dipstick 1.0 mg/dL (0.2 mg/dL) Urine Leukocyte Esterase Trace (NEG) Urine RBC 0 /HPF (0-2) Urine WBC 1-4 /HPF (0-4) Urine Squamous Epithelial Cells Few /LPF Urine Transitional Epithelial Cells Occ /LPF Urine Bacteria Moderate /HPF (0-FEW) Urine Mucus Marked /LPF Glucose (Fingerstick) 155 mg/dL (70-99) 100 mg/dL (70-99) Test 09/19/16 11:33 Glucose (Fingerstick) 99 mg/dL (70-99) Laboratory Tests Test 09/18/16 16:10 09/18/16 17:15 09/18/16 19:06 09/19/16 07:49 White Blood Count 16.2 x10^3/uL (4.0-11.0) Red Blood Count 5.77 x10^6/uL (3.50-5.40) Hemoglobin 15.7 g/dL (12.0-15.5) Hematocrit 48.7 % (36.0-47.0) Mean Corpuscular Volume 84 fL (79-100) Mean Corpuscular Hemoglobin 27 pg (25-35) Mean Corpuscular Hemoglobin Concent 32 g/dL (31-37) Red Cell Distribution Width 18.5 % (11.5-14.5) Platelet Count 275 x10^3/uL (140-400) Neutrophils (%) (Auto) 82 % (31-73) Lymphocytes (%) (Auto) 12 % (24-48) Monocytes (%) (Auto) 4 % (0-9) Eosinophils (%) (Auto) 2 % (0-3) Basophils (%) (Auto) 0 % (0-3) Neutrophils # (Auto) 13.3 x10^3uL (1.8-7.7) Lymphocytes # (Auto) 1.9 x10^3/uL (1.0-4.8) Monocytes # (Auto) 0.7 x10^3/uL (0.0-1.1) Eosinophils # (Auto) 0.3 x10^3/uL (0.0-0.7) Basophils # (Auto) 0.1 x10^3/uL (0.0-0.2) Segmented Neutrophils % 71 % (35-66) Band Neutrophils % 12 % (0-9) Lymphocytes % 11 % (24-48) Monocytes % 3 % (0-10) Eosinophils % 3 % (0-5) Toxic Granulation Slight Platelet Estimate Adequate (ADEQUATE) Anisocytosis Slight Sodium Level 142 mmol/L (136-145) Potassium Level 3.6 mmol/L (3.5-5.1) Chloride Level 100 mmol/L (98-107) Carbon Dioxide Level 35 mmol/L (21-32) Anion Gap 7 (6-14) Blood Urea Nitrogen 10 mg/dL (7-20) Creatinine 0.9 mg/dL (0.6-1.0) Estimated GFR (Cockcroft-Gault) 63.4 BUN/Creatinine Ratio 11 (6-20) Glucose Level 275 mg/dL (70-99) Calcium Level 8.5 mg/dL (8.5-10.1) Total Bilirubin 0.7 mg/dL (0.2-1.0) Aspartate Amino Transf (AST/SGOT) 32 U/L (15-37) Alanine Aminotransferase (ALT/SGPT) 35 U/L (14-59) Alkaline Phosphatase 84 U/L (46-116) Total Protein 7.1 g/dL (6.4-8.2) Albumin 3.1 g/dL (3.4-5.0) Albumin/Globulin Ratio 0.8 (1.0-1.7) Urine Collection Type U cath Urine Color Dk yellow Urine Clarity Cloudy Urine pH 7.0 Urine Specific [place] 1.025 Urine Protein 30 mg/dL (NEG-TRACE) Urine Glucose (UA) 250 mg/dL (NEG) Urine Ketones (Stick) Negative mg/dL (NEG) Urine Blood Negative (NEG) Urine Nitrite Positive (NEG) Urine Bilirubin Small (NEG) Urine Urobilinogen Dipstick 1.0 mg/dL (0.2 mg/dL) Urine Leukocyte Esterase Trace (NEG) Urine RBC 0 /HPF (0-2) Urine WBC 1-4 /HPF (0-4) Urine Squamous Epithelial Cells Few /LPF Urine Transitional Epithelial Cells Occ /LPF Urine Bacteria Moderate /HPF (0-FEW) Urine Mucus Marked /LPF Glucose (Fingerstick) 155 mg/dL (70-99) 100 mg/dL (70-99) Test 09/19/16 11:33 Glucose (Fingerstick) 99 mg/dL (70-99) Medications Current Medications Morphine Sulfate 4 mg PRN Q15MIN PRN IV/SQ PAIN GREATER THAN 3/10 Last administered on 09/18/16 16:26; Start 09/18/16 at 16:00; Stop 09/19/16 at 15:59 Ondansetron HCl (Zofran) 4 mg 1X ONCE IV Last administered on 09/18/16 16:26 ; Start 09/18/16 at 16:30; Stop 09/18/16 at 16:31; Status DC Ondansetron HCl (Zofran) 4 mg PRN Q8HRS PRN IV NAUSEA/VOMITING; Start 09/18/16 at 18:00; Stop 09/19/16 at 17:59 Morphine Sulfate 4 mg PRN Q2HR PRN IV PAIN Last administered on 09/19/16 08:44 ; Start 09/18/16 at 18:00; Stop 09/19/16 at 17:59 Sodium Chloride 1,000 ml @ 125 mls/hr Q8H IV Last administered on 09/19/16 11 :34; Start 09/18/16 at 17:49; Stop 09/19/16 at 17:48 Levofloxacin/ Dextrose 100 ml @ 100 mls/hr Q24H IV Last administered on 19:13; Start 09/18/16 at 20:00 Fentanyl Citrate (Fentanyl 2ml Vial) 25 mcg PRN Q5MIN PRN IV MILD PAIN; Start 09/19/16 at 08:15; Stop 09/20/16 at 08:14 Fentanyl Citrate (Fentanyl 2ml Vial) 50 mcg PRN Q5MIN PRN IV MODERATE PAIN; Start 09/19/16 at 08:15; Stop 09/20/16 at 08:14 Morphine Sulfate 1 mg PRN Q10MIN PRN IV SEVERE PAIN; Start 09/19/16 at 08:15; Stop 09/20/16 at 08:14 Ringer's Solution 1,000 ml @ 30 mls/hr Q24H IV ; Start 09/19/16 at 08:01; Stop 09/19/16 at 20:00 Lidocaine HCl 2 ml PRN 1X PRN ID PRIOR TO IV START; Start 09/19/16 at 08:15; Stop 09/20/16 at 08:14 Hydromorphone HCl (Dilaudid) 0.5 mg PRN Q10MIN PRN IV SEV PAIN, Second choice; Start 09/19/16 at 08:15; Stop 09/20/16 at 08:14 Prochlorperazine Edisylate (Compazine) 5 mg PACU PRN PRN IV NAUSEA, MRX1; Start 09/19/16 at 08:15; Stop 09/20/16 at 08:14 Bupivacaine HCl/ Epinephrine Bitart (Sensorcain-Mpf Epi 0.5%-[id number]) 30 ml STK -MED ONCE .ROUTE ; Start 09/19/16 at 13:19; Stop 09/19/16 at 13:20; Status DC Albuterol Sulfate (Ventolin Neb Soln) 2.5 mg 1X ONCE NEB Last administered on 09/19/16t 13:25; Start 09/19/16 at 13:30; Stop 09/19/16 at 13:31; Status DC Desflurane (Suprane) 60 ml STK-MED ONCE IH ; Start 09/19/16 at 13:28; Stop 09/19 at 13:29; Status DC Fentanyl Citrate (Fentanyl 2ml Vial) 100 mcg STK-MED ONCE .ROUTE ; Start at 13:29; Stop 09/19/16 at 13:30; Status DC Propofol 20 ml @ As Directed STK-MED ONCE IV ; Start 09/19/16 at 13:29; Stop at 13:30; Status DC Dexamethasone Sodium Phosphate (Decadron) 20 mg STK-MED ONCE .ROUTE ; Start at 13:29; Stop 09/19/16 at 13:30; Status DC Ondansetron HCl (Zofran) 4 mg STK-MED ONCE .ROUTE ; Start 09/19/16 at 13:29; Stop 09/19/16 at 13:30; Status DC Lidocaine HCl (Lidocaine Pf 2% Vial) 5 ml STK-MED ONCE .ROUTE ; Start 09/19/16 at 13:29; Stop 09/19/16 at 13:30; Status DC Succinylcholine Chloride (Anectine) 200 mg STK-MED ONCE .ROUTE ; Start 09/19/16 at 13:31; Stop 09/19/16 at 13:32; Status DC Active Scripts Active Reported Proair Hfa Inhaler (Albuterol Sulfate) 8.5 Gm Hfa.aer.ad 1 Puff INH PRN Q6HRS PRN Breo Ellipta 100-25 Mcg Inh (Fluticasone/Vilanterol) 1 Each Aer.pow.ba 1 Puff IH DAILY Glimepiride 2 Mg Tablet 2 Mg PO DAILY Singulair Tablet (Montelukast Sodium) 10 Mg Tablet 10 Mg PO HS Lasix (Furosemide) 20 Mg Tablet 20 Mg PO DAILY Meloxicam 15 Mg Tablet 15 Mg PO DAILY Synthroid (Levothyroxine Sodium) 200 Mcg Tablet 200 Mcg PO DAILYAC Vitals/I & O Vital Sign - Last 24 Hours 09/18/16 09/18/16 09/18/16 09/18/16 15:40 16:23 17:20 18:20 Temp 98.2 94.1 98.2 94.1 Pulse 80 84 82 89 Resp 20 20 20 18 B/P (MAP) 171/83 (112) 171/83 (112) 160/76 (104) 160/78 (105) Pulse Ox 93 93 92 88 O2 Delivery Nasal Cannula Nasal Cannula Nasal Cannula Nasal Cannula O2 Flow Rate 2.0 2.0 2.0 2.0 09/18/16 09/18/16 09/18/16 09/18/16 19:00 19:13 20:00 22:22 Temp 97.9 97.9 Pulse 91 Resp 16 16 16 B/P (MAP) 161/88 (112) Pulse Ox 87 O2 Delivery Nasal Cannula Nasal Cannula Nasal Cannula Nasal Cannula O2 Flow Rate 2.0 2.0 2.0 2.0 09/18/16 09/19/16 09/19/16 09/19/16 23:00 03:00 07:00 08:44 Temp 98.1 95.9 98.5 98.1 95.9 98.5 Pulse 83 89 94 Resp 17 16 18 18 B/P (MAP) 130/57 (81) 129/71 (90) 154/82 (106) Pulse Ox 92 91 89 89 O2 Delivery Nasal Cannula Nasal Cannula Nasal Cannula Nasal Cannula O2 Flow Rate 2.0 2.0 2.0 2.0 09/19/16 09/19/16 09:14 11:00 Temp 99.2 99.2 Pulse 94 Resp 18 18 B/P (MAP) 133/114 (120) Pulse Ox 89 88 O2 Delivery Nasal Cannula Nasal Cannula O2 Flow Rate 2.0 2.0 Intake and Output 09/18/16 09/18/16 09/19/16 15:00 23:00 07:00 Intake Total 200 ml Output Total 500 ml Balance -300 ml SOUMYA ESCOBAR III DO Sep 19, 2016 13:51
[2016-09-19] MEDS ORDERED: ROCURONIUM 100 MG/10 ML VIAL. ONE (14:00)
[2016-09-19] MEDS ORDERED: CLINDAMYCIN 900MG PREMIX 50 ML IV ONE (14:00)
[2016-09-19] MEDS ORDERED: NEOSTIGMINE 10 MG/10 ML VIAL. ONE (14:09)
[2016-09-19] MEDS ORDERED: GLYCOPYRROLATE 1 MG/5 ML VIAL. ONE (14:09)
[2016-09-19] MEDS ORDERED: POLYETHYLENE GLYCOL 3350 17 GM PACKET. PO PRN (16:30)
[2016-09-19] MEDS ORDERED: SENNOSIDES/DOCUSATE 8.6/50MG TABLET. PO PRN (16:30)
[2016-09-19] MEDS ORDERED: DEXTROSE 50% 25 GM / 50ML DISP.SYRIN. IV PRN (16:30)
--- NOTE | 2016-09-19 16:37 | PDOC ---
BRIEF OPERATIVE NOTE Date: Sep 19, 2016 Pre-Op Diagnosis Right supracondylar femur fracture Post-Op Diagnosis same Procedure Performed Right retrograde intramedullary femoral nailing Surgeon Shanell Larsen MD [employer] Scottie Kee PA-C Blood Loss 300cc Specimens Obtained none Findings none Complications none SCOTTIE KEE PAC Sep 19, 2016 16:36
[2016-09-19] MEDS ORDERED: IV NORMAL SALINE 1000ML BAG 1,000 ML IV ONE (20:00)
[2016-09-19] MEDS: CLINDAMYCIN 600MG PREMIX 50 ML IV SCH (20:44)
[2016-09-19] MEDS ORDERED: MORPHINE SULFATE 4 MG/ML DISP.SYRIN. IV PRN ×3 (20:45→23:00)
[2016-09-19] MEDS: oxyCODONE/APAP 5/325 1 TAB TABLET PO PRN (20:47)
[2016-09-20] VITALS (13 sets, daily range): BP systolic 72–155; BP diastolic 45–73
[2016-09-20] MEDS: CLINDAMYCIN 600MG PREMIX 50 ML IV SCH ×2 (02:21→08:00)
[2016-09-20] MEDS: oxyCODONE/APAP 5/325 1 TAB TABLET PO PRN ×3 (06:53→14:48)
--- NOTE | 2016-09-20 07:10 | PDOC ---
PROGRESS NOTES Subjective Subjective Problems overnight: No nausea vomiting, chest pain, shortness of breath or other acute issues overnight. Patient was sent to ICU post operatively due to a need for CPAP. Patient pain is well controlled. She states she slept with the nasal cannula all night and not with the CPAP and did well. Objective Vital Signs Vital Signs Date Time Temp Pulse Resp B/P (MAP) Pulse Ox O2 Delivery O2 Flow Rate FiO2 09/20/16 06:53 16 94 Nasal Cannula 4.0 09/20/16 06:00 78 155/71 (99) 09/20/16 04:00 98.2 98.2 Physical Exam Patient is Alert and oriented to person place and time this morning and in good spirits. RIGHT UPPER EXTREMITY in sling. DNVI RIGHT LOWER EXTREMITY dressing intact, some mild serosanguinous drainage from distal end of incision site. DNVI with strong posterior tibialis pulse. Labs Laboratory Tests Test 09/18/16 16:10 09/18/16 17:15 09/18/16 19:06 09/19/16 07:49 White Blood Count 16.2 x10^3/uL (4.0-11.0) Red Blood Count 5.77 x10^6/uL (3.50-5.40) Hemoglobin 15.7 g/dL (12.0-15.5) Hematocrit 48.7 % (36.0-47.0) Mean Corpuscular Volume 84 fL (79-100) Mean Corpuscular Hemoglobin 27 pg (25-35) Mean Corpuscular Hemoglobin Concent 32 g/dL (31-37) Red Cell Distribution Width 18.5 % (11.5-14.5) Platelet Count 275 x10^3/uL (140-400) Neutrophils (%) (Auto) 82 % (31-73) Lymphocytes (%) (Auto) 12 % (24-48) Monocytes (%) (Auto) 4 % (0-9) Eosinophils (%) (Auto) 2 % (0-3) Basophils (%) (Auto) 0 % (0-3) Neutrophils # (Auto) 13.3 x10^3uL (1.8-7.7) Lymphocytes # (Auto) 1.9 x10^3/uL (1.0-4.8) Monocytes # (Auto) 0.7 x10^3/uL (0.0-1.1) Eosinophils # (Auto) 0.3 x10^3/uL (0.0-0.7) Basophils # (Auto) 0.1 x10^3/uL (0.0-0.2) Segmented Neutrophils % 71 % (35-66) Band Neutrophils % 12 % (0-9) Lymphocytes % 11 % (24-48) Monocytes % 3 % (0-10) Eosinophils % 3 % (0-5) Toxic Granulation Slight Platelet Estimate Adequate (ADEQUATE) Anisocytosis Slight Sodium Level 142 mmol/L (136-145) Potassium Level 3.6 mmol/L (3.5-5.1) Chloride Level 100 mmol/L (98-107) Carbon Dioxide Level 35 mmol/L (21-32) Anion Gap 7 (6-14) Blood Urea Nitrogen 10 mg/dL (7-20) Creatinine 0.9 mg/dL (0.6-1.0) Estimated GFR (Cockcroft-Gault) 63.4 BUN/Creatinine Ratio 11 (6-20) Glucose Level 275 mg/dL (70-99) Calcium Level 8.5 mg/dL (8.5-10.1) Total Bilirubin 0.7 mg/dL (0.2-1.0) Aspartate Amino Transf (AST/SGOT) 32 U/L (15-37) Alanine Aminotransferase (ALT/SGPT) 35 U/L (14-59) Alkaline Phosphatase 84 U/L (46-116) Total Protein 7.1 g/dL (6.4-8.2) Albumin 3.1 g/dL (3.4-5.0) Albumin/Globulin Ratio 0.8 (1.0-1.7) Urine Collection Type U cath Urine Color Dk yellow Urine Clarity Cloudy Urine pH 7.0 Urine Specific [place] 1.025 Urine Protein 30 mg/dL (NEG-TRACE) Urine Glucose (UA) 250 mg/dL (NEG) Urine Ketones (Stick) Negative mg/dL (NEG) Urine Blood Negative (NEG) Urine Nitrite Positive (NEG) Urine Bilirubin Small (NEG) Urine Urobilinogen Dipstick 1.0 mg/dL (0.2 mg/dL) Urine Leukocyte Esterase Trace (NEG) Urine RBC 0 /HPF (0-2) Urine WBC 1-4 /HPF (0-4) Urine Squamous Epithelial Cells Few /LPF Urine Transitional Epithelial Cells Occ /LPF Urine Bacteria Moderate /HPF (0-FEW) Urine Mucus Marked /LPF Glucose (Fingerstick) 155 mg/dL (70-99) 100 mg/dL (70-99) Test 09/19/16 11:33 Glucose (Fingerstick) 99 mg/dL (70-99) Laboratory Tests Test 09/19/16 07:49 09/19/16 11:33 Glucose (Fingerstick) 100 mg/dL (70-99) 99 mg/dL (70-99) Assessment Assessment POD# [1], S/P [Right retrograde intramedullary femoral nailing] Problems: (1) Closed fracture of right distal femur (2) Fracture of humeral head, closed Plan Plan of Care PHYSICAL THERAPY/OT RIGHT LOWER EXTREMITY TOE-TOUCH WEIGHT BEARING for transfers. Foot pumping exercises regularly. RIGHT UPPER EXTREMITY NON-WEIGHT BEARING. Hand, wrist elbow exercises. No active external rotation of shoulder. Pain control Bowel Regimen DVT Prophylaxis Problem Qualifiers (1) Closed fracture of right distal femur: Encounter type: subsequent encounter (2) Fracture of humeral head, closed: Encounter type: subsequent encounter SCOTTIE BEAR PAC Sep 20, 2016 07:10
--- NOTE | 2016-09-20 08:55 | RAD ---
Portable chest, 09/20/2016: History: COPD Comparison is made to a study from 03/02/2009. The patient positioning is lordotic and rotated. The heart is at the upper limits of normal in size. No pulmonary infiltrate is seen. There is blunting of the left lateral costophrenic angle which may be due to scarring or a prominent epicardial fat pad accentuated by patient rotation. A small amount of pleural fluid cannot be excluded. There is no evidence of pneumothorax. IMPRESSION: 1. Borderline cardiomegaly. 2. No acute infiltrates.
[2016-09-20 09:35] LABS: HEMATOCRIT 38.2 % (36.0-47.0); HEMOGLOBIN 12.3 g/dL (12.0-15.5); RED BLOOD COUNT 4.52 x10^6/uL (3.50-5.40); RED CELL DISTRIBUTION WIDTH 17.7 % (11.5-14.5); WHITE BLOOD COUNT 12.1 x10^3/uL (4.0-11.0)
[2016-09-20 09:39] LABS: CALCIUM 7.5 mg/dL (8.5-10.1); CREATININE 0.6 mg/dL (0.6-1.0); GFR 101.3; POTASSIUM 4.3 mmol/L (3.5-5.1)
[2016-09-20] MEDS ORDERED: NON FORMULARY ITEM (Albuterol Sulfate (Proair Hfa Inhaler) 1 PUFF) INH PRN (11:15)
[2016-09-20] MEDS ORDERED: MORPHINE SULFATE 4 MG/ML DISP.SYRIN. IV PRN ×2 (11:30→20:45)
[2016-09-20] MEDS ORDERED: ALBUTEROL SULFATE 2.5 MG/3 ML NEBU. NEB PRN (11:30)
[2016-09-20] MEDS: FUROSEMIDE 20 MG TABLET PO SCH (11:45)
[2016-09-20] MEDS: MELOXICAM 7.5 MG TABLET PO SCH (11:45)
[2016-09-20] MEDS: LEVOTHYROXINE 100 MCG TABLET PO SCH (11:45)
--- NOTE | 2016-09-20 11:59 | PDOC ---
PROGRESS NOTES Chief Complaint Chief Complaint Distal femur fx Humerus avulsion fx Hypertension Diabetes Hypothyroidism Muscle spasms Insomnia Allergic rhinitis Asthma History of Present Illness History of Present Illness Patient was seen in the ICU. AOx3. Surgery successful. Probably discharge to rehab center. Patient does not want to go to rehab, but will consider. WBC elevated at 16.2. Vitals Vitals Vital Signs Date Time Temp Pulse Resp B/P (MAP) Pulse Ox O2 Delivery O2 Flow Rate FiO2 09/20/16 11:44 16 Nasal Cannula 3.0 09/20/16 06:53 94 09/20/16 06:00 78 155/71 (99) 09/20/16 04:00 98.2 98.2 Physical Exam General: Alert, Oriented X3, Cooperative, No acute distress Heart: Regular rate, No murmurs Lungs: Clear, Other (no r/r/w) Abdomen: Normal bowel sounds, No tenderness Extremities: No clubbing, No cyanosis Skin: No breakdown, No significant lesion Labs LABS Laboratory Tests Test 09/20/16 09:00 White Blood Count 12.1 x10^3/uL (4.0-11.0) Red Blood Count 4.52 x10^6/uL (3.50-5.40) Hemoglobin 12.3 g/dL (12.0-15.5) Hematocrit 38.2 % (36.0-47.0) Mean Corpuscular Volume 85 fL (79-100) Mean Corpuscular Hemoglobin 27 pg (25-35) Mean Corpuscular Hemoglobin Concent 32 g/dL (31-37) Red Cell Distribution Width 17.7 % (11.5-14.5) Platelet Count 183 x10^3/uL (140-400) Sodium Level 140 mmol/L (136-145) Potassium Level 4.3 mmol/L (3.5-5.1) Chloride Level 102 mmol/L (98-107) Carbon Dioxide Level 38 mmol/L (21-32) Anion Gap 0 (6-14) Blood Urea Nitrogen 9 mg/dL (7-20) Creatinine 0.6 mg/dL (0.6-1.0) Estimated GFR (Cockcroft-Gault) 101.3 Glucose Level 98 mg/dL (70-99) Calcium Level 7.5 mg/dL (8.5-10.1) Review of Systems Review of Systems Patient complains of arm pain. Patient complains of leg pain. Assessment and Plan Assessmemt and Plan Problems Medical Problems: (1) Closed fracture of right distal femur Status: Acute (2) Fracture of humeral head, closed Status: Acute Assessment: Distal femur fx Humerus avulsion fx Hypertension Diabetes Hypothyroidism Muscle spasms Insomnia Allergic rhinitis Asthma Plan: 1. Continue clindamycin 2. Possible discharge to rehab center 3. Recheck labs 4. Continue PT/OT 5. Continue home medications Problems: Comment Review of Relevant I have reviewed the following items vic (where applicable) has been applied. Labs Laboratory Tests Test 09/18/16 16:10 09/18/16 17:15 09/18/16 19:06 09/19/16 07:49 White Blood Count 16.2 x10^3/uL (4.0-11.0) Red Blood Count 5.77 x10^6/uL (3.50-5.40) Hemoglobin 15.7 g/dL (12.0-15.5) Hematocrit 48.7 % (36.0-47.0) Mean Corpuscular Volume 84 fL (79-100) Mean Corpuscular Hemoglobin 27 pg (25-35) Mean Corpuscular Hemoglobin Concent 32 g/dL (31-37) Red Cell Distribution Width 18.5 % (11.5-14.5) Platelet Count 275 x10^3/uL (140-400) Neutrophils (%) (Auto) 82 % (31-73) Lymphocytes (%) (Auto) 12 % (24-48) Monocytes (%) (Auto) 4 % (0-9) Eosinophils (%) (Auto) 2 % (0-3) Basophils (%) (Auto) 0 % (0-3) Neutrophils # (Auto) 13.3 x10^3uL (1.8-7.7) Lymphocytes # (Auto) 1.9 x10^3/uL (1.0-4.8) Monocytes # (Auto) 0.7 x10^3/uL (0.0-1.1) Eosinophils # (Auto) 0.3 x10^3/uL (0.0-0.7) Basophils # (Auto) 0.1 x10^3/uL (0.0-0.2) Segmented Neutrophils % 71 % (35-66) Band Neutrophils % 12 % (0-9) Lymphocytes % 11 % (24-48) Monocytes % 3 % (0-10) Eosinophils % 3 % (0-5) Toxic Granulation Slight Platelet Estimate Adequate (ADEQUATE) Anisocytosis Slight Sodium Level 142 mmol/L (136-145) Potassium Level 3.6 mmol/L (3.5-5.1) Chloride Level 100 mmol/L (98-107) Carbon Dioxide Level 35 mmol/L (21-32) Anion Gap 7 (6-14) Blood Urea Nitrogen 10 mg/dL (7-20) Creatinine 0.9 mg/dL (0.6-1.0) Estimated GFR (Cockcroft-Gault) 63.4 BUN/Creatinine Ratio 11 (6-20) Glucose Level 275 mg/dL (70-99) Calcium Level 8.5 mg/dL (8.5-10.1) Total Bilirubin 0.7 mg/dL (0.2-1.0) Aspartate Amino Transf (AST/SGOT) 32 U/L (15-37) Alanine Aminotransferase (ALT/SGPT) 35 U/L (14-59) Alkaline Phosphatase 84 U/L (46-116) Total Protein 7.1 g/dL (6.4-8.2) Albumin 3.1 g/dL (3.4-5.0) Albumin/Globulin Ratio 0.8 (1.0-1.7) Urine Collection Type U cath Urine Color Dk yellow Urine Clarity Cloudy Urine pH 7.0 Urine Specific [place] 1.025 Urine Protein 30 mg/dL (NEG-TRACE) Urine Glucose (UA) 250 mg/dL (NEG) Urine Ketones (Stick) Negative mg/dL (NEG) Urine Blood Negative (NEG) Urine Nitrite Positive (NEG) Urine Bilirubin Small (NEG) Urine Urobilinogen Dipstick 1.0 mg/dL (0.2 mg/dL) Urine Leukocyte Esterase Trace (NEG) Urine RBC 0 /HPF (0-2) Urine WBC 1-4 /HPF (0-4) Urine Squamous Epithelial Cells Few /LPF Urine Transitional Epithelial Cells Occ /LPF Urine Bacteria Moderate /HPF (0-FEW) Urine Mucus Marked /LPF Glucose (Fingerstick) 155 mg/dL (70-99) 100 mg/dL (70-99) Test 09/19/16 11:33 09/20/16 09:00 Glucose (Fingerstick) 99 mg/dL (70-99) White Blood Count 12.1 x10^3/uL (4.0-11.0) Red Blood Count 4.52 x10^6/uL (3.50-5.40) Hemoglobin 12.3 g/dL (12.0-15.5) Hematocrit 38.2 % (36.0-47.0) Mean Corpuscular Volume 85 fL (79-100) Mean Corpuscular Hemoglobin 27 pg (25-35) Mean Corpuscular Hemoglobin Concent 32 g/dL (31-37) Red Cell Distribution Width 17.7 % (11.5-14.5) Platelet Count 183 x10^3/uL (140-400) Sodium Level 140 mmol/L (136-145) Potassium Level 4.3 mmol/L (3.5-5.1) Chloride Level 102 mmol/L (98-107) Carbon Dioxide Level 38 mmol/L (21-32) Anion Gap 0 (6-14) Blood Urea Nitrogen 9 mg/dL (7-20) Creatinine 0.6 mg/dL (0.6-1.0) Estimated GFR (Cockcroft-Gault) 101.3 Glucose Level 98 mg/dL (70-99) Calcium Level 7.5 mg/dL (8.5-10.1) Laboratory Tests Test 09/20/16 09:00 White Blood Count 12.1 x10^3/uL (4.0-11.0) Red Blood Count 4.52 x10^6/uL (3.50-5.40) Hemoglobin 12.3 g/dL (12.0-15.5) Hematocrit 38.2 % (36.0-47.0) Mean Corpuscular Volume 85 fL (79-100) Mean Corpuscular Hemoglobin 27 pg (25-35) Mean Corpuscular Hemoglobin Concent 32 g/dL (31-37) Red Cell Distribution Width 17.7 % (11.5-14.5) Platelet Count 183 x10^3/uL (140-400) Sodium Level 140 mmol/L (136-145) Potassium Level 4.3 mmol/L (3.5-5.1) Chloride Level 102 mmol/L (98-107) Carbon Dioxide Level 38 mmol/L (21-32) Anion Gap 0 (6-14) Blood Urea Nitrogen 9 mg/dL (7-20) Creatinine 0.6 mg/dL (0.6-1.0) Estimated GFR (Cockcroft-Gault) 101.3 Glucose Level 98 mg/dL (70-99) Calcium Level 7.5 mg/dL (8.5-10.1) Microbiology 09/18/16 Urine Culture - Preliminary, Resulted 09/18/16 Urine Culture Result 1 (WILMER) - Preliminary, Resulted Medications Current Medications Morphine Sulfate 4 mg PRN Q15MIN PRN IV/SQ PAIN GREATER THAN 3/10 Last administered on 09/18/16 16:26; Start 09/18/16 at 16:00; Stop 09/19/16 at 13:48 ; Status DC Ondansetron HCl (Zofran) 4 mg 1X ONCE IV Last administered on 09/18/16 16:26 ; Start 09/18/16 at 16:30; Stop 09/18/16 at 16:31; Status DC Ondansetron HCl (Zofran) 4 mg PRN Q8HRS PRN IV NAUSEA/VOMITING; Start 09/18/16 at 18:00; Stop 09/19/16 at 17:59; Status DC Morphine Sulfate 4 mg PRN Q2HR PRN IV PAIN Last administered on 09/19/16 08:44 ; Start 09/18/16 at 18:00; Stop 09/19/16 at 17:59; Status DC Sodium Chloride 1,000 ml @ 125 mls/hr Q8H IV Last administered on 09/19/16 11 :34; Start 09/18/16 at 17:49; Stop 09/19/16 at 17:48; Status DC Levofloxacin/ Dextrose 100 ml @ 100 mls/hr Q24H IV Last administered on 20:00; Start 09/18/16 at 20:00; Stop 09/20/16 at 11:16; Status DC Fentanyl Citrate (Fentanyl 2ml Vial) 25 mcg PRN Q5MIN PRN IV MILD PAIN; Start 09/19/16 at 08:15; Stop 09/19/16 at 19:00; Status DC Fentanyl Citrate (Fentanyl 2ml Vial) 50 mcg PRN Q5MIN PRN IV MODERATE PAIN; Start 09/19/16 at 08:15; Stop 09/19/16 at 19:00; Status DC Morphine Sulfate 1 mg PRN Q10MIN PRN IV SEVERE PAIN; Start 09/19/16 at 08:15; Stop 09/19/16 at 19:00; Status DC Ringer's Solution 1,000 ml @ 30 mls/hr Q24H IV ; Start 09/19/16 at 08:01; Stop 09/19/16 at 20:00; Status DC Lidocaine HCl 2 ml PRN 1X PRN ID PRIOR TO IV START; Start 09/19/16 at 08:15; Stop 09/19/16 at 19:00; Status DC Hydromorphone HCl (Dilaudid) 0.5 mg PRN Q10MIN PRN IV SEV PAIN, Second choice; Start 09/19/16 at 08:15; Stop 09/19/16 at 19:00; Status DC Prochlorperazine Edisylate (Compazine) 5 mg PACU PRN PRN IV NAUSEA, MRX1; Start 09/19/16 at 08:15; Stop 09/19/16 at 19:00; Status DC Bupivacaine HCl/ Epinephrine Bitart (Sensorcain-Mpf Epi 0.5%-[id number]) 30 ml STK -MED ONCE .ROUTE Last administered on 09/19/16t 14:40; Start 09/19/16 at 13:19 ; Stop 09/19/16 at 13:20; Status DC Albuterol Sulfate (Ventolin Neb Soln) 2.5 mg 1X ONCE NEB Last administered on 09/19/16t 13:25; Start 09/19/16 at 13:30; Stop 09/19/16 at 13:31; Status DC Desflurane (Suprane) 60 ml STK-MED ONCE IH ; Start 09/19/16 at 13:28; Stop 09/19 at 13:29; Status DC Fentanyl Citrate (Fentanyl 2ml Vial) 100 mcg STK-MED ONCE .ROUTE ; Start at 13:29; Stop 09/19/16 at 13:30; Status Cancel Propofol 20 ml @ As Directed STK-MED ONCE IV ; Start 09/19/16 at 13:29; Stop at 13:30; Status DC Dexamethasone Sodium Phosphate (Decadron) 20 mg STK-MED ONCE .ROUTE ; Start at 13:29; Stop 09/19/16 at 13:30; Status DC Ondansetron HCl (Zofran) 4 mg STK-MED ONCE .ROUTE ; Start 09/19/16 at 13:29; Stop 09/19/16 at 13:30; Status DC Lidocaine HCl (Lidocaine Pf 2% Vial) 5 ml STK-MED ONCE .ROUTE ; Start 09/19/16 at 13:29; Stop 09/19/16 at 13:30; Status DC Succinylcholine Chloride (Anectine) 200 mg STK-MED ONCE .ROUTE ; Start 09/19/16 at 13:31; Stop 09/19/16 at 13:32; Status DC Clindamycin Phosphate 50 ml @ 100 mls/hr 1X ONCE IV ; Start 09/19/16 at 14:00 ; Stop 09/19/16 at 14:29; Status DC Ephedrine Sulfate (Akovaz) 50 mg STK-MED ONCE .ROUTE ; Start 09/19/16 at 13:59; Stop 09/19/16 at 14:00; Status DC Rocuronium [place] (Zemuron) 100 mg STK-MED ONCE .ROUTE ; Start 09/19/16 at 14: 00; Stop 09/19/16 at 14:01; Status DC Glycopyrrolate (Robinul) 1 mg STK-MED ONCE .ROUTE ; Start 09/19/16 at 14:09; Stop 09/19/16 at 14:10; Status DC Neostigmine Methylsulfate (Bloxiverz) 10 mg STK-MED ONCE .ROUTE ; Start at 14:09; Stop 09/19/16 at 14:10; Status DC Fentanyl Citrate (Fentanyl 2ml Vial) 100 mcg STK-MED ONCE .ROUTE ; Start at 14:22; Stop 09/19/16 at 14:23; Status DC Senna/Docusate Sodium (Senna Plus) 2 tab PRN QHS PRN PO CONSTIPATION; Start at 16:30; Stop 09/20/16 at 11:16; Status DC Polyethylene Glycol (miraLAX PACKET) 17 gm PRN DAILY PRN PO CONSTIPATION; Start 09/19/16 at 16:30; Stop 09/20/16 at 11:16; Status DC Clindamycin Phosphate 50 ml @ 100 mls/hr Q6H IV Last administered on 08:00; Start 09/19/16 at 20:00; Stop 09/20/16 at 08:29; Status DC Dextrose (Dextrose 50%-Water Syringe) 12.5 gm PRN Q15MIN PRN IV SEE COMMENTS; Start 09/19/16 at 16:30; Stop 09/20/16 at 11:16; Status DC Albuterol Sulfate (Ventolin Neb Soln) 2.5 mg 1X ONCE NEB Last administered on 09/19/16 16:35; Start 09/19/16 at 17:45; Stop 09/19/16 at 17:46; Status DC Sodium Chloride 1,000 ml @ 100 mls/hr 1X ONCE IV ; Start 09/19/16 at 20:00; Stop 09/20/16 at 05:59; Status DC Morphine Sulfate 2 mg PRN Q2HR PRN IV PAIN Last administered on 09/19/16 20:47 ; Start 09/19/16 at 20:45; Stop 09/19/16 at 23:01; Status DC Morphine Sulfate 4 mg PRN Q2HR PRN IV PAIN; Start 09/19/16 at 20:45; Stop 09/20 at 11:16; Status DC Oxycodone/ Acetaminophen (Percocet 5/325) 1 tab PRN Q6HRS PRN PO PAIN Last administered on 09/20/16 06:53; Start 09/19/16 at 20:45; Stop 09/20/16 at 11:16 ; Status DC Morphine Sulfate 2 mg PRN Q2HR PRN IV PAIN; Start 09/19/16 at 23:00; Stop 09/20 at 11:16; Status DC Furosemide (Lasix) 20 mg DAILY PO Last administered on 09/20/16 11:45; Start 09/20/16 at 12:00 Glimepiride (Amaryl) 2 mg DAILY PO ; Start 09/21/16 at 09:00 Montelukast Sodium (Singulair) 10 mg HS PO ; Start 09/20/16 at 21:00 Non-Formulary Medication 1 puff PRN Q6HRS PRN INH SHORTNESS OF BREATH; Start at 11:15; Status UNV Non-Formulary Medication 1 puff DAILY IH ; Start 09/21/16 at 09:00; Status UNV Levothyroxine Sodium (Synthroid) 200 mcg DAILY07 PO Last administered on 11:45; Start 09/20/16 at 12:00 Meloxicam (Mobic) 15 mg DAILY PO Last administered on 09/20/16 11:45; Start at 12:00 Dextrose (Dextrose 50%-Water Syringe) 12.5 gm PRN Q15MIN PRN IV SEE COMMENTS; Start 09/20/16 at 16:30 Morphine Sulfate 2 mg PRN Q2HR PRN IV PAIN; Start 09/20/16 at 11:30 Morphine Sulfate 4 mg PRN Q2HR PRN IV PAIN; Start 09/20/16 at 20:45 Albuterol/ Ipratropium (Duoneb) 3 ml RTQID NEB ; Start 09/20/16 at 12:00 Budesonide (Pulmicort) 0.5 mg RTBID NEB ; Start 09/20/16 at 20:00 Albuterol Sulfate (Ventolin Neb Soln) 2.5 mg PRN Q6HRS PRN NEB SHORTNESS OF BREATH; Start 09/20/16 at 11:30 Oxycodone/ Acetaminophen (Percocet 5/325) 1 tab PRN Q6HRS PRN PO PAIN Last administered on 09/20/16 11:44; Start 09/20/16 at 11:30 Active Scripts Active Reported Proair Hfa Inhaler (Albuterol Sulfate) 8.5 Gm Hfa.aer.ad 1 Puff INH PRN Q6HRS PRN Breo Ellipta 100-25 Mcg Inh (Fluticasone/Vilanterol) 1 Each Aer.pow.ba 1 Puff IH DAILY Glimepiride 2 Mg Tablet 2 Mg PO DAILY Singulair Tablet (Montelukast Sodium) 10 Mg Tablet 10 Mg PO HS Lasix (Furosemide) 20 Mg Tablet 20 Mg PO DAILY Meloxicam 15 Mg Tablet 15 Mg PO DAILY Synthroid (Levothyroxine Sodium) 200 Mcg Tablet 200 Mcg PO DAILYAC Vitals/I & O Vital Sign - Last 24 Hours 09/19/16 09/19/16 09/19/16 09/19/16 13:13 16:30 16:30 16:45 Temp 100.8 98.3 100.8 100.8 98.3 100.8 Pulse 92 110 110 Resp 24 24 B/P (MAP) 129/68 160/67 147/75 Pulse Ox 88 87 91 O2 Delivery Nasal Cannula Mask Simple Mask Simple Mask O2 Flow Rate 2.0 8 8 8 09/19/16 09/19/16 09/19/16 09/19/16 17:00 17:00 17:15 17:30 Temp 100.8 100.8 Pulse 110 109 100 Resp 28 27 21 B/P (MAP) 150/68 163/69 148/69 Pulse Ox 94 95 96 95 O2 Delivery Simple Mask BiPAP/CPAP Nasal Cannula BiPAP/CPAP BiPAP/CPAP O2 Flow Rate 8 09/19/16 09/19/16 09/19/16 09/19/16 17:45 18:00 18:15 19:00 Temp 97.9 97.9 97.9 99.1 97.9 97.9 97.9 99.1 Pulse 100 98 97 92 Resp 18 B/P (MAP) 139/66 145/67 141/70 152/72 (98) Pulse Ox 96 95 96 96 O2 Delivery BiPAP/CPAP BiPAP/CPAP BiPAP/CPAP BiPAP/CPAP 09/19/16 09/19/16 09/19/16 09/19/16 19:30 20:00 20:00 20:30 Temp 98.9 98.9 Pulse 86 90 86 Resp 18 18 18 B/P (MAP) 148/76 (100) 140/69 (92) 125/66 (85) Pulse Ox 95 93 95 O2 Delivery Nasal Cannula Nasal Cannula Nasal Cannula Nasal Cannula O2 Flow Rate 6.0 6.0 6.0 09/19/16 09/19/16 09/19/16 09/19/16 20:47 21:00 21:20 22:00 Pulse 90 Resp 20 18 18 20 B/P (MAP) 139/69 (92) Pulse Ox 92 O2 Delivery Nasal Cannula Nasal Cannula Nasal Cannula Nasal Cannula O2 Flow Rate 6.0 6.0 6.0 6.0 09/19/16 09/19/16 09/20/16 09/20/16 22:00 23:00 00:00 00:00 Temp 98.9 98.9 Pulse 86 86 79 Resp 18 18 18 B/P (MAP) 118/57 (77) 124/70 (88) 127/66 (86) Pulse Ox 93 94 95 O2 Delivery Nasal Cannula Nasal Cannula Nasal Cannula Nasal Cannula O2 Flow Rate 6.0 6.0 6.0 6.0 09/20/16 09/20/16 09/20/16 09/20/16 01:00 02:00 03:00 04:00 Temp 98.2 98.2 Pulse 80 77 78 Resp 18 18 18 B/P (MAP) 119/60 (79) 117/72 (87) 122/63 (82) Pulse Ox 96 92 92 O2 Delivery Nasal Cannula Nasal Cannula Nasal Cannula O2 Flow Rate 6.0 4.0 4.0 09/20/16 09/20/16 09/20/16 09/20/16 04:07 04:10 05:00 06:00 Pulse 74 78 78 Resp 18 18 18 B/P (MAP) 121/62 (81) 125/62 (83) 155/71 (99) Pulse Ox 95 94 94 O2 Delivery Nasal Cannula Nasal Cannula Nasal Cannula Nasal Cannula O2 Flow Rate 4.0 4.0 4.0 4.0 09/20/16 09/20/16 09/20/16 06:53 08:00 11:44 Resp 16 16 Pulse Ox 94 O2 Delivery Nasal Cannula Nasal Cannula Nasal Cannula O2 Flow Rate 4.0 4.0 3.0 Intake and Output 09/19/16 09/19/16 09/20/16 15:00 23:00 07:00 Intake Total 2750 ml Output Total 1345 ml 380 ml Balance 1405 ml -380 ml SOUMYA ESCOBAR III DO Sep 20, 2016 11:59
--- NOTE | 2016-09-20 12:48 | CONS ---
DATE OF CONSULTATION: ATTENDING PHYSICIAN: Dr. Thomas. REASON FOR CONSULTATION: Postop hypoxia. HISTORY OF PRESENT ILLNESS: The patient is a 61-year-old morbidly obese patient who has been a smoker for 40 years and was still smoking before coming to the hospital. She was complaining of pain in her right leg and shoulder after she tripped over her carpet. The patient was seen in the Emergency Room and was found to have a right humeral ____ fracture as well as acute fracture of the distal right femur. The patient was seen by orthopedics. She went surgery ____ right knee. Postoperatively, she had hypoxia and was requiring CPAP. As a result, she was admitted to the ICU. Since the effect of anesthetic agents wore off, she gradually was taken off the CPAP and her oxygenation needs have improved as well from 6 liters of oxygen flow. She is down to 3 liters and saturations are in the mid to high 90s. She has some chronic mild exertional dyspnea. She has not on home oxygen. She has been a smoker for 40 years. The patient had a chest x-ray which showed borderline cardiomegaly, but no acute infiltrates. The patient states she has history of snoring and daytime somnolence. She was supposed a home sleep study tomorrow, but since she is in the hospital, that will not happen. PAST MEDICAL HISTORY: Significant for history of hypertension, history of diabetes, hypothyroidism, muscle spasm, suspected COPD could be severe, history of insomnia, allergic rhinitis. ALLERGIES: PENICILLIN AND CEFAZOLIN. PAST SURGICAL HISTORY: As discussed above. FAMILY HISTORY: Hypertension. SOCIAL HISTORY: Quit tobacco just before the hospitalization and has been a smoker for 40 years. REVIEW OF SYSTEMS: Twelve-point system obtained. Pertinent positives discussed in history of present illness, otherwise noncontributory. All systems that were negative were reviewed as well. MEDICATIONS: All reviewed as listed in the MRAD including bronchodilators and oxycodone. PHYSICAL EXAMINATION: GENERAL: She is awake, following commands. VITAL SIGNS: Pulse ox is 94% on 3 liters, blood pressure 155/71. HEENT: Sclerae nonicteric. NECK: Supple. LUNGS: Diminished breath sounds. CARDIOVASCULAR: Regular rate. ABDOMEN: Soft, obese. EXTREMITIES: With edema in the right knee. She has a surgical dressing and minimal edema on the left lower extremity. LABORATORY DATA: Reviewed. White cell count 12.1, hemoglobin 12.3, and platelets are 183. Urine with moderate bacteria. IMPRESSION: 1. Acute expected postoperative respiratory failure requiring high flow oxygen and CPAP. This was secondary to combination of underlying chronic obstructive pulmonary disease, obesity hypoventilation syndrome and effective anesthetic agents. Clinically much better now down to 3 liters nasal cannula. 2. Clear chest x-ray. 3. Leukocytosis and suspected urinary tract infection. Antibiotics per PCP. 4. Suspected underlying chronic obstructive pulmonary disease. She smoked for 40 years. 5. Suspected obstructive sleep apnea. She was supposed to have home sleep study, but it could not be done as she is in the hospital now and will arrange as an outpatient. 6. Status post fall with fracture of the right humerus and right femur, status post repair of right femur and a sling on the right shoulder. RECOMMENDATIONS: 1. Continue to wean oxygen. 2. Bronchodilators. 3. Minimize narcotics. 4. Consider sleep study as an outpatient. Her insurance will approve home sleep study only. 5. Smoking cessation counseling provided. 6. Follow up with Orthopedics. 7. Initiate chemical deep vein thrombosis prophylaxis per Orthopedic. 8. Treatment of urinary tract infection per PCP. I appreciate the privilege in providing care to the patient. Critical care time 37 minutes. AN ROMERO MD DR: LOIS/richie JOB#: [id number] / [id number] SOUMYA Farah DO [facility]
[2016-09-20] MEDS: HEPARIN PF for SUB-Q USE 5,000 UNIT/0.5 ML VIAL. SQ SCH ×2 (13:09→22:24)
[2016-09-20] MEDS: IPRATRPIUM/ALBUTEROL 0.5/2.5MG 3 ML NEBU. NEB SCH ×2 (15:45→19:41)
[2016-09-20] MEDS ORDERED: DEXTROSE 50% 25 GM / 50ML DISP.SYRIN. IV PRN (16:30)
[2016-09-20] MEDS: BUDESONIDE 0.5 MG/2 ML NEBU. NEB SCH (19:41)
--- NOTE | 2016-09-20 20:30 | PDOC4 ---
Operative Note Operative Note Date of procedure: 09.19.2016 PREOP DIAGNOSIS: Right supracondylar femur fracture; ICD-10: S72.451A , POSTOP DIAGNOSIS: same Procedure performed: Intramedullary nail fixation of the left supracondylar femur fracture; CPT 65862 Surgeon: Gerald Irwin MD Automation Engineering Manager: Kris Kee PA-C ANESTHESIA: General endotracheal. ESTIMATED BLOOD LOSS: 300 cc COMPLICATIONS: None. Implants: Van T2 supracondylar femoral nail, 10 x 340 mm with two 5-mm proximal locking screws and three 5-mm distal locking screw. INDICATION FOR SURGERY: The patient is a 61 year old female who fell from a standing height. Her right leg folded underneath her and she was unable to ambulate. She was brought to the ER and found to have a right femur supracondylar fracture and a right proximal humerus fracture. She is a 40 year smoker with COPD. The risks of surgery were discussed in detail including, but not limited to infection, bleeding, injuries to nerves, or vital structures , nonunion or malunion, need for reoperation, knee pain, compartment syndrome, and the risk of anesthesia. The patient understood these risks and wished to proceed. PROCEDURE DETAIL: The patient was met in the preoperative holding area and operative site was marked. The patient was brought to the operating room and given preoperative antibiotics. A timeout was performed. The right leg was then prepped and draped in the usual sterile fashion. An esmarch was used to exsanguinate the limb with a sterile tourniquet set at 300 mm Hg. A midline incision was made in the center of the knee and was carried down sharply to the retinacular tissue. Full thickness skin flaps were elevated. The medial joint capsule was opened in a parapatellar approach. Approximately 100 cc of fracture hematoma was evacuated from the joint. The distal femoral fragment was then reduced to the shaft fragment over a radiolucent triangle. The starting guidewire was used to localize the correct starting point, in the center of the femoral condyles, just anterior to blumensaat's line in line with the posterior cortex. The guidewire was advanced and confirmed on the AP and lateral fluoroscopic images. The opening reamer was then used and the ball-tip guidewire was passed to the level of the lesser trochanter. After passing the guidewire and achieving appropriate reduction, the flexible reamers were then sequentially passed, starting at 9 mm up to a 12 mm reamer. At this point, an 10 x 340 mm nail was passed without difficulty. The guide was used to place the distal locking screws and the appropriate perfect nenana technique was used for the proximal locking screws. The tourniquet had to be taken down prior to the proximal screws being placed. The final images were taken with fluoroscopy. The wounds were then copiously irrigated. Her para-patellar approach and quadriceps tendon were repaired with Ethibond suture, and the superficial tissue was reapproximated with 2-0 PDS and 3-0 monocryl. A prineo dressing was used for the skin both proximal and distally. Steristrips were applied over buried monocryls for the percutaneous incisions over the distal screws. Her incisions were infused with 30 cc of 0.50% marcaine with epi. Sterile dressings were applied. The patient was awakened from anesthesia with no complications, and transferred to the stretcher and recovery room awake, alert, and in stable condition. The plan will be toe-touch weight bearing as tolerated for transfers. She should follow up in clinic in 7-10 days for an incision check and xrays. Her right shoulder fracture will be treated nonoperatively in a sling. nonweight bearing. My congressional assistant was essential to the case for positioning, prepping, draping, fracture reduction and retraction, and assistance with closure. GERALD IRWIN MD Sep 20, 2016 20:30
[2016-09-20] MEDS: MONTELUKAST SODIUM 10 MG TABLET. PO SCH (22:20)
[2016-09-21 03:00] VITALS: BP 123/71
[2016-09-21] MEDS: LEVOTHYROXINE 100 MCG TABLET PO SCH (06:28)
[2016-09-21] MEDS: HEPARIN PF for SUB-Q USE 5,000 UNIT/0.5 ML VIAL. SQ SCH (06:32)
[2016-09-21 07:00] VITALS: BP 136/64
[2016-09-21] MEDS: IPRATRPIUM/ALBUTEROL 0.5/2.5MG 3 ML NEBU. NEB SCH ×4 (07:26→19:20)
[2016-09-21] MEDS: BUDESONIDE 0.5 MG/2 ML NEBU. NEB SCH ×2 (07:26→19:20)
--- NOTE | 2016-09-21 07:36 | RAD ---
Portable right femur, 2 views, 09/20/2016: History: Postop evaluation Comparison is made to a study from 09/18/2016. An intramedullary sarmad has been placed traversing the major fracture fragments at the site of the distal femoral fracture. There are horizontally oriented screws related to the proximal and distal aspects of this sarmad. The major fracture fragments are in satisfactory position for healing. There is mild medial displacement of a small fracture fragment at the fracture site. There are moderate degenerative changes at the knee joint. There is no evidence of a retained surgical instrument, needle or radiopaque sponge. IMPRESSION: Interval reduction and internal fixation of the distal femoral fracture.
[2016-09-21] MEDS ORDERED: NON FORMULARY ITEM (Fluticasone/Vilanterol (Breo Ellipta 100-25 Mcg Inh) 1 PUFF) IH SCH (09:00)
--- NOTE | 2016-09-21 09:39 | PDOC ---
PROGRESS NOTES Subjective Subjective Problems overnight: No NV, CP, SOB or other acute events overnight. Patient states pain is well controlled and she is ready to get up and start getting up now. Objective Vital Signs Vital Signs Date Time Temp Pulse Resp B/P (MAP) Pulse Ox O2 Delivery O2 Flow Rate FiO2 09/21/16 07:28 Nasal Cannula 3.0 09/21/16 07:00 98.7 85 18 136/64 (88) 93 98.7 Physical Exam Alert and oriented to person place and time. Wearing sling for RUE. Patient still has call in place. RLE incision sites CDI with no erythema. Grossly moves feet and toes, PT pulse full. DNVI. RUE some pain with full elbow extension. Able to fully extend and flex elbow as well as pronate and supinate. DNVI Labs Laboratory Tests Test 09/19/16 11:33 09/20/16 09:00 09/20/16 12:18 Glucose (Fingerstick) 99 mg/dL (70-99) 100 mg/dL (70-99) White Blood Count 12.1 x10^3/uL (4.0-11.0) Red Blood Count 4.52 x10^6/uL (3.50-5.40) Hemoglobin 12.3 g/dL (12.0-15.5) Hematocrit 38.2 % (36.0-47.0) Mean Corpuscular Volume 85 fL (79-100) Mean Corpuscular Hemoglobin 27 pg (25-35) Mean Corpuscular Hemoglobin Concent 32 g/dL (31-37) Red Cell Distribution Width 17.7 % (11.5-14.5) Platelet Count 183 x10^3/uL (140-400) Sodium Level 140 mmol/L (136-145) Potassium Level 4.3 mmol/L (3.5-5.1) Chloride Level 102 mmol/L (98-107) Carbon Dioxide Level 38 mmol/L (21-32) Anion Gap 0 (6-14) Blood Urea Nitrogen 9 mg/dL (7-20) Creatinine 0.6 mg/dL (0.6-1.0) Estimated GFR (Cockcroft-Gault) 101.3 Glucose Level 98 mg/dL (70-99) Calcium Level 7.5 mg/dL (8.5-10.1) Laboratory Tests Test 09/20/16 12:18 Glucose (Fingerstick) 100 mg/dL (70-99) Imaging Plain films of right femur reveal well placed intramedullary nail with associated screws. Distal femur fracture in near anatomic position. Assessment Assessment POD# [2], S/P [retrograde intramedullary femoral nailing] Problems: (1) Fracture of humeral head, closed (2) Closed fracture of right distal femur Plan Plan of Care 61 year old female with right shoulder fracture and right supracondylar femur fracture. Patient is doing well with pain control and ready to start getting out of bed. Patient still has call catheter in place per request from nurse yesterday which I agreed to. Ok to DC call today when able. PT/OT: RLE TTWB as needed for transfer. RUE NWB, Hand, wrist and elbow ROM exercises. Pain control DVT Prophylaxis Bowel regimen as needed Problem Qualifiers (1) Fracture of humeral head, closed: Encounter type: subsequent encounter Laterality: right (2) Closed fracture of right distal femur: Encounter type: subsequent encounter SCOTTIE BEAR PAC Sep 21, 2016 09:39
[2016-09-21] MEDS: GLIMEPIRIDE 2 MG TABLET. PO SCH (09:42)
[2016-09-21] MEDS: MELOXICAM 7.5 MG TABLET PO SCH (09:42)
[2016-09-21] MEDS: FUROSEMIDE 20 MG TABLET PO SCH (09:42)
[2016-09-21] MEDS: oxyCODONE/APAP 5/325 1 TAB TABLET PO PRN ×2 (09:43→19:30)
--- NOTE | 2016-09-21 10:33 | PDOC ---
PULMONARY PROGRESS NOTES Subjective could not tolerate CPAP Vitals Vital Signs Date Time Temp Pulse Resp B/P (MAP) Pulse Ox O2 Delivery O2 Flow Rate FiO2 09/21/16 09:43 16 Room Air 09/21/16 07:28 3.0 09/21/16 07:00 98.7 85 136/64 (88) 93 98.7 General: Alert, No acute distress Lungs: Clear Cardiovascular: S1 Abdomen: Soft Neuro Exam: Alert Extremities: Other (right leg edema) Labs Laboratory Tests Test 09/19/16 11:33 09/20/16 09:00 09/20/16 12:18 Glucose (Fingerstick) 99 mg/dL (70-99) 100 mg/dL (70-99) White Blood Count 12.1 x10^3/uL (4.0-11.0) Red Blood Count 4.52 x10^6/uL (3.50-5.40) Hemoglobin 12.3 g/dL (12.0-15.5) Hematocrit 38.2 % (36.0-47.0) Mean Corpuscular Volume 85 fL (79-100) Mean Corpuscular Hemoglobin 27 pg (25-35) Mean Corpuscular Hemoglobin Concent 32 g/dL (31-37) Red Cell Distribution Width 17.7 % (11.5-14.5) Platelet Count 183 x10^3/uL (140-400) Sodium Level 140 mmol/L (136-145) Potassium Level 4.3 mmol/L (3.5-5.1) Chloride Level 102 mmol/L (98-107) Carbon Dioxide Level 38 mmol/L (21-32) Anion Gap 0 (6-14) Blood Urea Nitrogen 9 mg/dL (7-20) Creatinine 0.6 mg/dL (0.6-1.0) Estimated GFR (Cockcroft-Gault) 101.3 Glucose Level 98 mg/dL (70-99) Calcium Level 7.5 mg/dL (8.5-10.1) Laboratory Tests Test 09/20/16 12:18 Glucose (Fingerstick) 100 mg/dL (70-99) Medications Active Scripts Medications Dose Route/Sig Max Daily Dose Days Date Category Proair Hfa Inhaler (Albuterol Sulfate) 8.5 Gm Hfa.aer.ad 1 Puff INH PRN Q6HRS PRN 09/18/16 Reported Breo Ellipta 100-25 Mcg Inh (Fluticasone/Vilanterol) 1 Each Aer.pow.ba 1 Puff IH DAILY 09/18/16 Reported Glimepiride 2 Mg Tablet 2 Mg PO DAILY 09/18/16 Reported Singulair Tablet (Montelukast Sodium) 10 Mg Tablet 10 Mg PO HS 09/18/16 Reported Lasix (Furosemide) 20 Mg Tablet 20 Mg PO DAILY 09/18/16 Reported Meloxicam 15 Mg Tablet 15 Mg PO DAILY 09/18/16 Reported Synthroid (Levothyroxine Sodium) 200 Mcg Tablet 200 Mcg PO DAILYAC 09/18/16 Reported Impression . 1. Acute expected postoperative respiratory failure requiring high flow oxygen and CPAP. This was secondary to combination of underlying chronic obstructive pulmonary disease, obesity hypoventilation syndrome and effective anesthetic agents. Clinically much better now down to 3 liters nasal cannula. 2. Clear chest x-ray. 3. Leukocytosis and suspected urinary tract infection. Antibiotics per PCP. 4. Suspected underlying chronic obstructive pulmonary disease. She smoked for 40 years. 5. Suspected obstructive sleep apnea. She was supposed to have home sleep study, but it could not be done as she is in the hospital now and will arrange as an outpatient. 6. Status post fall with fracture of the right humerus and right femur, status post repair of right femur and a sling on the right shoulder. Plan . 1. Continue to wean oxygen. 2. Bronchodilators. 3. Minimize narcotics. 4. Consider sleep study as an outpatient. Her insurance will approve home sleep study only. could not tolerate mask, may try pillows as OP 5. Smoking cessation counseling provided. 6. Follow up with Orthopedics. 7. Initiate chemical deep vein thrombosis prophylaxis per Orthopedic. 8. Treatment of urinary tract infection per PCP. AN ROMERO MD Sep 21, 2016 10:33
[2016-09-21 11:00] VITALS: BP 124/55
[2016-09-21] MEDS ORDERED: OXYC1TAB7 PO (11:54)
[2016-09-21] MEDS ORDERED: HEPA500022 SQ (11:56)
--- NOTE | 2016-09-21 13:47 | PDOC ---
PROGRESS NOTES Chief Complaint Chief Complaint Distal femur fx Humerus avulsion fx ASSESSMENT AND PLAN: 1. Traumatic R femur and humerus fx: s/p ORIF on 09/20. recovering appropriately. pain control adequate 2. Hypoxia: complicating post op course; suspected COPD in 40 p/y smoker as well as obesity hypoventilation syndrome. appreciate Dr Teague's input. nebs, O2 3. STELLA: never followed up with sleep study as intended in past. F/U on O/P basis 4. HTN: well controlled 4. DM2: on home amaryl with good control. ISS 5. Hypothyroidism: on synthroid 6. Prophylaxis: lovenox 7. Dispo: acute rehab History of Present Illness History of Present Illness pain with fair control. not able to wt bare; is afraid to fall if has to go to toilet. Vitals Vitals Vital Signs Date Time Temp Pulse Resp B/P (MAP) Pulse Ox O2 Delivery O2 Flow Rate FiO2 09/21/16 11:41 Nasal Cannula 3.0 09/21/16 11:00 99.5 85 18 124/55 (78) 93 99.5 Physical Exam General: Alert, Oriented X3, Cooperative, No acute distress Heart: Regular rate, No murmurs Lungs: Clear Abdomen: Normal bowel sounds, No tenderness Extremities: No clubbing, No cyanosis Skin: No breakdown, No significant lesion EZE PAEZ MD Sep 21, 2016 13:47
[2016-09-21 15:00] VITALS: BP 102/60
[2016-09-21 19:00] VITALS: BP 135/68
[2016-09-21] MEDS: MONTELUKAST SODIUM 10 MG TABLET. PO SCH (21:12)
[2016-09-21] MEDS: ENOXAPARIN 40 MG/0.4 ML SYRINGE. SQ SCH (21:14)
[2016-09-21 23:00] VITALS: BP 128/66
[2016-09-22 03:00] VITALS: BP 135/78
[2016-09-22] MEDS: LEVOTHYROXINE 100 MCG TABLET PO SCH (06:32)
[2016-09-22 07:00] VITALS: BP 133/67
[2016-09-22] MEDS: BUDESONIDE 0.5 MG/2 ML NEBU. NEB SCH (07:12)
[2016-09-22] MEDS: IPRATRPIUM/ALBUTEROL 0.5/2.5MG 3 ML NEBU. NEB SCH ×3 (07:12→15:23)
[2016-09-22] MEDS: MELOXICAM 7.5 MG TABLET PO SCH (09:25)
[2016-09-22] MEDS: GLIMEPIRIDE 2 MG TABLET. PO SCH (09:25)
[2016-09-22] MEDS: FUROSEMIDE 20 MG TABLET PO SCH (09:25)
[2016-09-22] MEDS: ENOXAPARIN 40 MG/0.4 ML SYRINGE. SQ SCH (09:26)
[2016-09-22] MEDS: oxyCODONE/APAP 5/325 1 TAB TABLET PO PRN ×2 (09:27→15:59)
--- NOTE | 2016-09-22 09:33 | PDOC ---
PROGRESS NOTES Subjective Subjective Problems overnight: No NV, CP, SOB or any other acute events overnight. Patient got up with physical therapy some yesterday. She states her leg feels pretty good but her shoulder is sore. Objective Vital Signs Vital Signs Date Time Temp Pulse Resp B/P (MAP) Pulse Ox O2 Delivery O2 Flow Rate FiO2 09/22/16 07:13 92 Nasal Cannula 2.0 09/22/16 03:00 98.2 88 18 135/78 (97) 98.2 Physical Exam Patient sitting up in bed. Call catheter is still in place. Sling on right arm. RLE incision site clean dry and intact. DNVI. RUE DNVI Labs Laboratory Tests Test 09/20/16 12:18 Glucose (Fingerstick) 100 mg/dL (70-99) Assessment Assessment POD# [3], S/P [Right retrograde intramedullary femoral nailing] Problems: (1) Fracture of humeral head, closed (2) Closed fracture of right distal femur Plan Plan of Care 61 year old female POD3 s/p retrograde IM femoral nailing. Patient also has a right shoulder fracture which will be managed with sling. Patient still has call in place. Recommend DC unless there is an indication to continue. Call can be DCed from an orthopedic standpoint once patient starts ambulating with therapy. PT/OT: RLE TTWB for transfers. RUE NWB - hand wrist and elbow exercises. Patient to follow up with us in clinic 7-10 days post op at [facility]. Patient has been given follow up information. Pain control. DVT Prophylaxis. Bowel Reg as needed. Problem Qualifiers (1) Fracture of humeral head, closed: Encounter type: subsequent encounter Laterality: right (2) Closed fracture of right distal femur: Encounter type: subsequent encounter SCOTTIE BEAR PAC Sep 22, 2016 09:33
[2016-09-22 11:00] VITALS: BP 132/64
--- NOTE | 2016-09-22 12:18 | PDOC ---
PULMONARY PROGRESS NOTES Subjective could not tolerate CPAP IN HOUSE Vitals Vital Signs Date Time Temp Pulse Resp B/P (MAP) Pulse Ox O2 Delivery O2 Flow Rate FiO2 09/22/16 11:00 98.1 94 18 132/64 (86) 90 Nasal Cannula 2.0 98.1 General: Alert, No acute distress Lungs: Clear Cardiovascular: S1 Abdomen: Soft Neuro Exam: Alert Extremities: Other (right leg edema) Labs Laboratory Tests Test 09/20/16 12:18 Glucose (Fingerstick) 100 mg/dL (70-99) Medications Active Scripts Medications Dose Route/Sig Max Daily Dose Days Date Category Proair Hfa Inhaler (Albuterol Sulfate) 8.5 Gm Hfa.aer.ad 1 Puff INH PRN Q6HRS PRN 09/18/16 Reported Breo Ellipta 100-25 Mcg Inh (Fluticasone/Vilanterol) 1 Each Aer.pow.ba 1 Puff IH DAILY 09/18/16 Reported Glimepiride 2 Mg Tablet 2 Mg PO DAILY 09/18/16 Reported Singulair Tablet (Montelukast Sodium) 10 Mg Tablet 10 Mg PO HS 09/18/16 Reported Lasix (Furosemide) 20 Mg Tablet 20 Mg PO DAILY 09/18/16 Reported Meloxicam 15 Mg Tablet 15 Mg PO DAILY 09/18/16 Reported Synthroid (Levothyroxine Sodium) 200 Mcg Tablet 200 Mcg PO DAILYAC 09/18/16 Reported Impression . 1. Acute expected postoperative respiratory failure requiring high flow oxygen and CPAP. This was secondary to combination of underlying chronic obstructive pulmonary disease, obesity hypoventilation syndrome and effective anesthetic agents. Clinically much better now down to 3 liters nasal cannula. 2. Clear chest x-ray. 3. Leukocytosis and suspected urinary tract infection. Antibiotics per PCP. 4. Suspected underlying chronic obstructive pulmonary disease. She smoked for 40 years. 5. Suspected obstructive sleep apnea. She was supposed to have home sleep study, but it could not be done as she is in the hospital now and will arrange as an outpatient. 6. Status post fall with fracture of the right humerus and right femur, status post repair of right femur and a sling on the right shoulder. Plan . 1. Continue to wean oxygen. 2. Bronchodilators. 3. Minimize narcotics. 4. Consider sleep study as an outpatient. Her insurance will approve home sleep study only. could not tolerate mask, may try pillows as OP 5. Smoking cessation counseling provided. 6. Follow up with Orthopedics. 7. deep vein thrombosis prophylaxis per Orthopedic. 8. Treatment of urinary tract infection per PCP./Kliebsella in urine, not on antibiotics, add AN Mendiola MD Sep 22, 2016 12:18
[2016-09-22] MEDS ORDERED: DOXY100T PO (12:41)
[2016-09-22] MEDS ORDERED: DOXYCYCLINE HYCLATE 100 MG TABLET PO SCH (13:00)
== END 2016-09-22 16:15 | DRG 480 ==
LOC: ER 15:40 → 4 NORTH 17:10 → 1 WEST ICU 09-19 18:30 → 4 NORTH 09-20 16:30
PROVIDERS: ADMIT Internal Medicine; ATTEND Internal Medicine
PROC: 5A09357 Assistance with Respiratory Ventilation, Less than 24 Consecutive Hours, Continuous Positive Airway Pressure (ICD-10-PCS; 2016-09-19)
PROC: 0QHC06Z Insertion of Intramedullary Internal Fixation Device into Left Lower Femur, Open Approach (ICD-10-PCS; principal; 2016-09-19 10:00)
DX: S72.451A Displaced supracondylar fracture without intracondylar extension of lower end of right femur, initial encounter for closed fracture (principal); J96.00 Acute respiratory failure, unspecified whether with hypoxia or hypercapnia; Z68.42 Body mass index [BMI] 45.0-49.9, adult; E66.2 Morbid (severe) obesity with alveolar hypoventilation; N39.0 Urinary tract infection, site not specified; S42.309A Unspecified fracture of shaft of humerus, unspecified arm, initial encounter for closed fracture; I10 Essential (primary) hypertension; E03.9 Hypothyroidism, unspecified; E11.9 Type 2 diabetes mellitus without complications; F17.200 Nicotine dependence, unspecified, uncomplicated; G47.00 Insomnia, unspecified; G47.33 Obstructive sleep apnea (adult) (pediatric); J44.9 Chronic obstructive pulmonary disease, unspecified; M06.9 Rheumatoid arthritis, unspecified; W18.30XA Fall on same level, unspecified, initial encounter; W22.01XA Walked into wall, initial encounter; Y92.009 Unspecified place in unspecified non-institutional (private) residence as the place of occurrence of the external cause; Z82.49 Family history of ischemic heart disease and other diseases of the circulatory system; Z85.828 Personal history of other malignant neoplasm of skin; Z88.0 Allergy status to penicillin; Z88.8 Allergy status to other drugs, medicaments and biological substances; Z90.49 Acquired absence of other specified parts of digestive tract; Z90.89 Acquired absence of other organs; Z71.89 Other specified counseling
CPT/HCPCS: 36415; 51702; 71010; 73030; 73200; 73552; 73560; 76000; 80048; 80053; 81001; 82962; 85007; 85025; 85027; 87086; 87186; 87641; 94250; 94640; 94660; 94760; 96374; 96375; C1713; J0330; J1100; J1650; J1956; J2270; J2405; J2704; J2710; J3010; J3490; J7030; J7120; J7613; J7620; J7626; 97530; 97535; 99285-25; J2001